=== PATIENT | male | born 1975 | race Two or more races ===

== ENCOUNTER 2017-07-04 06:51 | Emergency (ER) | payer MEDICAID ==
[~2017-07-04] VITALS: Ht 175.3 cm; Wt 113.4 kg
[~2017-07-04 06:51] MED LIST: NAPR-223 PO; TRAM-297 PO
[2017-07-04 07:40] LABS: Basophils # (auto) 0.1 uL; Basophils % (auto) 0.9 % (0.0-2.0); Eosinophils # (auto) 0.3 uL; Eosinophils % (auto) 2.7 % (0.0-7.0); Hemoglobin 15.5 g/dL (13.5-17.5); Lymphocytes # (auto) 2.5 uL; Lymphocytes % (auto) 21.9 % (10.0-50.0); Mean Corpuscular Hemoglobin 29.7 pg (28.0-32.0); Mean Corpuscular Hgb Conc. 34.4 g/dL (32.0-36.0); Mean Corpuscular Volume 86.5 fL (80.0-100.0); Monocytes # (auto) 0.5 uL; Monocytes % (auto) 4.3 % (0.0-12.0); Neutrophils # (auto) 8.1 uL; Neutrophils % (auto) 70.2 % (37.0-80.0); Platelet Count (auto) 337 10^3/uL (140-450); Red Cell Distribution Width 14.5 % (11.8-14.3); White Blood Cell 11.5 10^3/uL (4.4-10.8)
[2017-07-04 07:55] LABS: Alanine Aminotransferase 36 U/L (16-61); Albumin 3.9 g/dL (3.4-5.0); Amylase 40 U/L (25-115); Anion Gap 12 (5-15); Aspartate Aminotransferase 26 U/L (15-37); BUN/Creatinine Ratio 15.8; Blood Urea Nitrogen 15 mg/dL (7-18); Carbon Dioxide 21 mmol/L (21-32); Chloride 107 mmol/L (98-107); GFR African American 111 mL/min; GFR Non-African American 92 mL/min; Glucose 206 mg/dL (74-106); INR 0.97 (0.9-1.15); Lipase 96 U/L (73-393); Magnesium 2.3 mg/dL (1.6-2.6); Partial Thromboplastin Time 26.1 sec (22.64-33.71); Potassium 3.3 mmol/L (3.5-5.1); Prothrombin Time 10.6 sec (9.37-12.3); Sodium 140 mmol/L (136-145)
[2017-07-04 08:06] LABS: Alkaline Phosphatase 115 U/L (45-117); Bilirubin, Total 0.4 mg/dL (0.2-1.0); Total Protein 8.3 g/dL (6.4-8.2)
[2017-07-04] MEDS ORDERED: SODIUM CHLORIDE 0.9% 1,000 ML IV ONE ×2 (08:13)
[2017-07-04] MEDS ORDERED: POTASSIUM CHL 10% (20 MEQ/15ML) 15ml ORAL SOLN PO ONE (08:15)
[2017-07-04] MEDS ORDERED: DIAZEPAM 5 MG/ML 2ML SYRG IV ONE (08:15)
[2017-07-04] MEDS ORDERED: LORazepam 2MG/ML-1ML VIAL IV ONE (08:30)
[2017-07-04 10:20] LABS: Urine Bacteria FEW /hpf (None Seen); Urine Blood TRACE /uL (Negative); Urine Mucus MODERATE (None Seen); Urine Specific Gravity 1.026 (1.001-1.035); Urine WBC 5 /hpf (0 - 3)
[2017-07-04 11:46] VITALS: BP 132/96
== END 2017-07-04 12:53 | disposition home or self-care (01) ==
LOC: ER 06:51 → EDBD 06:51 → ER 12:53
DX: R42 Dizziness and giddiness (principal); J40 Bronchitis, not specified as acute or chronic; F12.10 Cannabis abuse, uncomplicated; E87.6 Hypokalemia; F17.210 Nicotine dependence, cigarettes, uncomplicated; Z79.1 Long term (current) use of non-steroidal anti-inflammatories (NSAID); Z79.891 Long term (current) use of opiate analgesic
CPT/HCPCS: 36415; 71045; 80053; 81001; 82150; 83690; 83735; 83880; 84484; 85025; 85610; 85730; 93005; 96374; 99285; J2060

== ENCOUNTER 2024-05-09 08:15 | Inpatient (IN) | payer MEDICAID ==
[~2024-05-09] VITALS: Ht 175.3 cm; Wt 116.0 kg
--- NOTE | 2024-05-09 09:32 | DVH ---
CHEST RADIOGRAPH Indication: cough Technique: Single frontal view of the chest was obtained COMPARISON: None FINDINGS: Lines and Tubes: None Lungs: Clear Pleura: No effusion. No pneumothorax. Cardiomediastinal contours: Unremarkable Bones: Unremarkable IMPRESSION: No acute disease.
[2024-05-09 09:36] LABS: Basophils # (auto) 0.1 10 ^3/uL (0-0.2); Basophils % (auto) 1.4 % (0.0-2.0); Eosinophils # (auto) 0.3 10 ^3/uL (0-0.8); Eosinophils % (auto) 4.2 % (0.0-7.0); Hematocrit 41.8 % (41.0-53.0); Hemoglobin 13.4 g/dL (13.5-17.5); Lymphocytes # (auto) 1.7 10 ^3/uL (0.4-5.4); Lymphocytes % (auto) 23.6 % (10.0-50.0); Mean Corpuscular Hemoglobin 28.1 pg (28.0-32.0); Mean Corpuscular Hgb Conc. 32.1 g/dL (32.0-36.0); Mean Corpuscular Volume 87.5 fL (80.0-100.0); Monocytes # (auto) 0.5 10 ^3/uL (0-1.3); Monocytes % (auto) 7.3 % (0.0-12.0); Neutrophils # (auto) 4.7 10 ^3/uL (1.6-8.6); Neutrophils % (auto) 63.5 % (37.0-80.0); Nucleated Red Blood Cells % 0.2 %; Platelet Count (auto) 334 10^3/uL (140-450); Red Blood Cells 4.78 10^6/uL (4.5-5.90); Red Cell Distribution Width 14.8 % (11.8-14.3); White Blood Cell 7.4 10^3/uL (4.4-10.8)
--- NOTE | 2024-05-09 09:40 | ED.PDOC ---
SOB-HPI HPI Comments 49-year-old male brought in by EMS presents with a chief complaint of SOB at rest and with exertion and cough x 2 weeks. Patient mentions that he has been feeling increasingly SOB for the past x 2 weeks both when he is walking and at rest sitting down. Patient mentions that he also has been coughing when taking deep breaths and reports green sputum production. Patient is not on home oxygen and does not endorse COPD or CHF. No other symptoms or modifying factors present at this time. Chief Complaint: Shortness of Breath Time Seen by MD: 09:00 Primary Care Provider: RICARDO Garcia notes: Medications, Allergies Information Source: Patient Mode of Arrival: EMS Severity: Moderate Timing: Days Duration: Since onset Context: At Rest, With Light Exertion PE Risk Factors: None History of: None Prehospital treatment: None Associated Signs and Symptoms: Cough If cough with SOB: Productive, Green Past Medical History PAST MEDICAL HISTORY: DM Surgical History: Denies all surgeries Family History Family History: Unknown Social History Smoker: Cigarettes, Less Than 1 Pack/Day Alcohol: Occasionally Drugs: Marijuana Lives In: Home Constitutional: denies: chills, diaphoresis, fatigue, fever, malaise, sweats, weakness, others EENTM: denies: blurred vision, double vision, ear bleeding, ear discharge, ear drainage, ear pain, ear ringing, eye pain, eye redness, hearing loss, mouth pain, mouth swelling, nasal discharge, nose bleeding, nose congestion, nose pain, photophobia, tearing, throat pain, throat swelling, voice changes, others Respiratory: reports: cough, SOB at rest, shortness of breath, SOB with excertion; denies: hemoptysis, orthopnea, stridor, wheezing, others Cardiovascular: denies: chest pain, dizzy spells, diaphoresis, Dyspnea on exertion, edema, irregular heart beat, left arm pain, lightheadedness, palpitations, PND, syncope, others Gastrointestinal: denies: abdomen distended, abdominal pain, blood streaked bowels, constipated, diarrhea, dysphagia, difficulty swallowing, hematemesis, melena, nausea, poor appetite, poor fluid intake, rectal bleeding, rectal pain, vomiting, others Genitourinary: denies: burning, dysuria, flank pain, frequency, hematuria, incontinence, penile discharge, penile sore, pain, testicle pain, testicle swelling, urgency, others Neurological: denies: dizziness, fainting, headache, left sided numbness, left sided weakness, numbness, paresthesia, pre-existing deficit, right sided numbness, right sided weakness, seizure, speech problems, tingling, tremors, weakness, others Musculoskeletal: denies: back pain, gout, joint pain, joint swelling, muscle pain, muscle stiffness, neck pain, others Integumetry: denies: bruises, change in color, change in hair/nails, dryness, laceration, lesions, lumps, rash, wounds, others Allergic/Immunocompromised: denies: Difficulty Healing, Frequent Infections, Hives, Itching, others Hematologic/Lymphatic: denies: anemia, blood clots, easy bleeding, easy bruising, swollen glands, others Endocrine: denies: excessive hunger, excessive sweating, excessive thirst, excessive urination, flushing, intolerance to cold, intolerance to heat, unexplained weight gain, unexplained weight loss, others Psychiatric: denies: anxiety, bipolar disorder, depression, hopeless, panic disorder, schizophrenia, sleepless, suicidal, others All Other Systems: Reviewed and Negative Physical Exam General Appearance: Moderate Distress, Normal HEENT: Normal ENT Inspection, Pharynx Normal, TMs Normal Neck: Full Range of Motion, Non-Tender, Normal, Normal Inspection Respiratory: Chest Non-Tender, No Accessory Muscle Use, No Respiratory Distress, Other (Coarse breath sounds) Cardiovascular: No Edema, No JVD, No Murmur, No Gallop, Normal Peripheral Pulses, Regular Rate/Rhythm Breast Exam: Deferred Gastrointestinal: No Organomegaly, Non Tender, No Pulsatile Mass, Normal Bowel Sounds, Soft Genitalia: Deferred Pelvic: Deferred Rectal: Deferred Extremities: No calf tenderness, Normal capillary refill, Normal inspection, Normal range of motion, Non-tender, No pedal edema Musculoskeletal : Apperance: Normal Neurologic: Alert, seasonal recruiter II-XII nml as Tested, No Motor Deficits, Normal Affect, Normal Mood, No Sensory Deficits Cerebellar Function: Normal Reflexes: Normal Skin: Dry, Normal Color, Warm Peripheral Pulses: 3+ Radial (R), 3+ Radial (L) Lymphatic: No Adenopathy Was a procedure done? Was a procedure done?: No Differential Dx Differential Diagnosis: Anxiety, Asthma, Bronchitis, CHF, COPD X-Ray, Labs, Meds, VS Vital Signs Date Time Temp Pulse Resp B/P (MAP) Pulse Ox O2 Delivery O2 Flow Rate FiO2 05/09/24 08:25 104 05/09/24 08:19 99.0 107 20 154/87 (109) 97 Lab Test 05/09/24 08:18 Range/Units White Blood Count 7.4 4.4-10.8 10^3/uL Red Blood Count 4.78 4.5-5.90 10^6/uL Hemoglobin 13.4 L 13.5-17.5 g/dL Hematocrit 41.8 41.0-53.0 % Mean Corpuscular Volume 87.5 80.0-100.0 fL Mean Corpuscular Hemoglobin 28.1 28.0-32.0 pg Mean Corpuscular Hemoglobin Concent 32.1 32.0-36.0 g/dL Red Cell Distribution Width 14.8 H 11.8-14.3 % Platelet Count 334 140-450 10^3/uL Mean Platelet Volume 9.2 6.9-10.8 fL Neutrophils (%) (Auto) 63.5 37.0-80.0 % Lymphocytes (%) (Auto) 23.6 10.0-50.0 % Monocytes (%) (Auto) 7.3 0.0-12.0 % Eosinophils (%) (Auto) 4.2 0.0-7.0 % Basophils (%) (Auto) 1.4 0.0-2.0 % Neutrophils # (Auto) 4.7 1.6-8.6 10 ^3/uL Lymphocytes # (Auto) 1.7 0.4-5.4 10 ^3/uL Monocytes # (Auto) 0.5 0-1.3 10 ^3/uL Eosinophils # (Auto) 0.3 0-0.8 10 ^3/uL Basophils # (Auto) 0.1 0-0.2 10 ^3/uL Nucleated Red Blood Cells 0.2 % Sodium Level 138 136-145 mmol/L Potassium Level 3.5 3.5-5.1 mmol/L Chloride Level 101 98-107 mmol/L Carbon Dioxide Level 26 20-31 mmol/L Anion Gap 11 5-15 Blood Urea Nitrogen 9 9-23 mg/dL Creatinine 0.96 0.700-1.30 mg/dL Glomerular Filtration Rate Calc 96 >90 mL/min BUN/Creatinine Ratio 9.4 L 10.0-20.0 Serum Glucose 387 H 74-106 mg/dL Calcium Level 9.8 8.7-10.4 mg/dL Troponin I High Sensitivity 74 *H </=54 ng/L Patient alert. Complaining of cough. Blood sugar elevated. Vitals stable. Cardiac marker elevated. Has risk factors for coronary artery disease. Coarse breath sounds. Possible pneumonitis. EKG reviewed does not show any acute changes. Was given Lovenox. Establish intravenous access. Was given fluids. Was given insulin. Explained to the patient. Continue cardiac monitoring. Time of 1ST Reevaluation: 09:30 Reevaluation 1ST: Unchanged Patient Education/Counseling: Diagnosis, Treatment, Prognosis Family Education/Counseling: Diagnosis, Treatment, Prognosis Departure 1 Departure Time of Disposition: 11:47 Impression: Primary Impression: Demand ischemia Additional Impression: Uncontrolled diabetes mellitus Qualified Codes: E13.65 - Other specified diabetes mellitus with hyperglycemia Disposition: ADMITTED INPATIENT Admit to: Med Surg Condition: Guarded Critical Care Note Critical Care Time?: Yes (45 min-critical care time only) Critical care comment: Elevated troponin elevated blood sugar Stability Stability form required: No Heart Score Heart Score: Heart Score Response (Comments) Value History Slightly Suspicious 0 EKG Normal 0 Age 45-64 1 Risk Factors 1 or 2 risk factors 1 Troponin 1-2 x's Normal limit 1 Total 3 I personally scribed for CULLEN JOHN MD ([email or web address]) on 05/09/24 at 09:40. Electronically submitted by Allan Sharma ([email or web address]). CULLEN JOHN MD May 09, 2024 09:40
[2024-05-09 09:47] LABS: Chloride 101 mmol/L (98-107); Sodium 138 mmol/L (136-145)
[2024-05-09 09:48] LABS: Anion Gap 11 (5-15); Carbon Dioxide 26 mmol/L (20-31)
[2024-05-09 09:49] LABS: Calcium 9.8 mg/dL (8.7-10.4)
[2024-05-09 09:53] LABS: BUN/Creatinine Ratio 9.4 (10.0-20.0); Blood Urea Nitrogen 9 mg/dL (9-23)
[2024-05-09 10:09] LABS: Glucose 387 mg/dL (74-106); Potassium 3.5 mmol/L (3.5-5.1)
[2024-05-09] MEDS: ENOXAPARIN SOD 100 MG/1 ML SYRINGE SC ONE (12:17)
--- NOTE | 2024-05-09 12:42 | DVHHP2 ---
History of Present Illness Reason for Visit: Shortness of breath History of Present Illness Tulio Null, is a 49-year-old male who denies any past medical history who comes in with complaints of shortness of breath. Patient states his shortness of breath began about 2 weeks ago. It has progressed to be with exertion and at re st. Patient went to urgent care yesterday and received antibiotics, but came to ER today because he felt like he was gasping for air while sleeping last night. Past Surgical History: Hernia Repair Smoke: <1 pack per day ALCOHOL: none Drugs: Marijuana Lives: with Family Domestic Violence: Neg Review of Systems Constitutional: No: Fever, Chills, Sweats, Weakness, Malaise, Other Eyes: No: Pain, Vision change, Conjunctivae inflammation, Eyelid inflammation, Other, Redness ENT: No: Ear pain, Ear discharge, Nose pain, Nose discharge, Nose congestion, Mouth pain, Mouth swelling, Throat pain, Throat swelling, Other Respiratory: Cough, Shortness of breath, SOB with excertion, Wheezing; No: Dry, Hemoptysis, Pleuritic Pain, Sputum, Wheezing, Other Cardiovascular: No: Chest Pain, Palpitations, Orthopnea, Paroxysmal Noc. Dyspnea, Edema, Lt Headedness, Other Gastrointestinal: No: Nausea, Vomiting, Abdominal Pain, Diarrhea, Constipation, Melena, Hematochezia, Other Genitourinary: No Dysuria, No Frequency, No Incontinence, No Hematuria, No Retention, No Other Musculoskeletal: No: other, neck pain, shoulder pain, arm pain, back pain, hand pain, leg pain, foot pain Skin: No: Rash, Lesions, Jaundice, Bruising, Other Neurological: No: Weakness, Numbness, Incoordination, Change in speech, Confusion, Seizures, Other Allergies: Coded Allergies: NO KNOWN ALLERGIES (Unverified , 01/14/13) Exam Vital Signs Vital Signs Date Time Temp Pulse Resp B/P (MAP) Pulse Ox O2 Delivery O2 Flow Rate FiO2 05/09/24 12:26 103 20 96 Room Air 05/09/24 12:26 98.9 155/95 (115) 98.9 General Appearance: Alert, Oriented X3, Cooperative, moderate distress HEENT: Atraumatic, PERRLA Respiratory: Other (bilateral wheezing and dimished breath sounds. ) Cardiovascular: Normal S1, Normal S2, Other (Tachycardia) Abdominal: Normal bowel sounds, Soft, No tenderness, No hepatospenomegaly Extremities: No clubbing, No cyanosis, No edema, Normal pulses, No tenderness/swelling Skin: No rashes, No breakdown, No significant lesion Neuro: Normal gait, Normal speech, Strength at 5/5 X4 ext Psych/Mental Status: Mental status NL, Mood NL Labs/Xrays Labs Test 05/09/24 08:18 Range/Units White Blood Count 7.4 4.4-10.8 10^3/uL Red Blood Count 4.78 4.5-5.90 10^6/uL Hemoglobin 13.4 L 13.5-17.5 g/dL Hematocrit 41.8 41.0-53.0 % Mean Corpuscular Volume 87.5 80.0-100.0 fL Mean Corpuscular Hemoglobin 28.1 28.0-32.0 pg Mean Corpuscular Hemoglobin Concent 32.1 32.0-36.0 g/dL Red Cell Distribution Width 14.8 H 11.8-14.3 % Platelet Count 334 140-450 10^3/uL Mean Platelet Volume 9.2 6.9-10.8 fL Neutrophils (%) (Auto) 63.5 37.0-80.0 % Lymphocytes (%) (Auto) 23.6 10.0-50.0 % Monocytes (%) (Auto) 7.3 0.0-12.0 % Eosinophils (%) (Auto) 4.2 0.0-7.0 % Basophils (%) (Auto) 1.4 0.0-2.0 % Neutrophils # (Auto) 4.7 1.6-8.6 10 ^3/uL Lymphocytes # (Auto) 1.7 0.4-5.4 10 ^3/uL Monocytes # (Auto) 0.5 0-1.3 10 ^3/uL Eosinophils # (Auto) 0.3 0-0.8 10 ^3/uL Basophils # (Auto) 0.1 0-0.2 10 ^3/uL Nucleated Red Blood Cells 0.2 % Sodium Level 138 136-145 mmol/L Potassium Level 3.5 3.5-5.1 mmol/L Chloride Level 101 98-107 mmol/L Carbon Dioxide Level 26 20-31 mmol/L Anion Gap 11 5-15 Blood Urea Nitrogen 9 9-23 mg/dL Creatinine 0.96 0.700-1.30 mg/dL Glomerular Filtration Rate Calc 96 >90 mL/min BUN/Creatinine Ratio 9.4 L 10.0-20.0 Serum Glucose 387 H 74-106 mg/dL Calcium Level 9.8 8.7-10.4 mg/dL Troponin I High Sensitivity 74 *H </=54 ng/L CHEST RADIOGRAPH FINDINGS: Lines and Tubes: None Lungs: Clear Pleura: No effusion. No pneumothorax. Cardiomediastinal contours: Unremarkable Bones: Unremarkable IMPRESSION: No acute disease. Assessment/Plan Assessment/Plan Assessment: Acute respiratory disease, Uncontrolled diabetes, Elevated troponin, Hypertension, Plan: Admit to Tele, Breathing treatments, COVID swab, Influenza A&B swab, Repeat troponin, A1c, IV steroids, IV antibiotics, Accu checks Q AC&HS with sliding scale, Plan discussed with: Patient My Orders Orders - LALITO MARINELLI Procedure Category Date Status Time Admit ADMIT 05/09/24 Transmitted 12:35 Code Status CODE 05/09/24 Transmitted 12:35 2 Gm Sodium Diet DIET 05/09/24 Transmitted Lunch Sodium Chloride Lock PHA 05/09/24 Transmitted (Saline Lock Ns) 14:00 Hydrocodone-Acet PHA 05/09/24 Transmitted 5/325mg Tab ([place] 12:45 Ondansetron Hcl PHA 05/09/24 Transmitted (Zofran) 12:45 Docusate Sodium PHA 05/09/24 Transmitted Capsule (Colace 12:45 Complete Blood Count LAB 05/10/24 Verified 04:00 Comprehensive LAB 05/10/24 Verified Metabolic Panel 04:00 Condition: Critical [facility] 05/09/24 Transmitted 12:35 Acetaminophen Tablet [facility] 05/09/24 Transmitted (Tylenol Tablet) 12:45 Nitroglycerin PHA 05/09/24 Transmitted Sublingual (Ntrostat 12:45 Morphine Sulfate PHA 05/09/24 Transmitted Injection 12:45 Stat Ekg For Chest [facility] 05/09/24 Transmitted Pain 12:35 Notify Md Of Changes [facility] 05/09/24 Transmitted From Base 12:35 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 Manager For [facility] 05/09/24 Transmitted 24 Hours 12:35 Emergency Dysrhythmia [facility] 05/09/24 Transmitted Protocol 12:35 Rhythm Strips Once [facility] 05/09/24 Transmitted Every Shift 12:35 Oxygen By Nasal RT 05/09/24 Transmitted Cannula 12:35 Glucose Blood PHA 05/09/24 Transmitted (Accu-Chek Comfort 17:00 Bedtime Insulin Scale PHA 05/09/24 Transmitted 22:00 Moderate Insulin Ss PHA 05/09/24 Transmitted 17:00 Dextrose 50% Syringe PHA 05/09/24 Transmitted 12:45 Troponin-I Hs LAB 05/09/24 Transmitted 12:35 Troponin-I Hs LAB 05/09/24 Transmitted 13:35 Covid19 Antigen Jazmine LAB 05/09/24 Transmitted Rapid Influenza A&B LAB 05/09/24 Transmitted 12:35 Ipratropium Medneb PHA 05/09/24 Transmitted (Atrovent Medneb) 18:00 Albuterol Medneb PHA 05/09/24 Transmitted (Ventolin Medneb) 18:00 Methylprednisolone PHA 05/09/24 Transmitted Sod Succ (Solu Medrol 22:00 Date of Service: May 09, 2024 Billing Provider: LALITO MARINELLI Common Visit Codes: [id number] INP/OBS CARE (HIGH) LALITO MARINELLI May 09, 2024 12:42
[2024-05-09] MEDS ORDERED: ACETAMINOPHEN 325 MG TAB PO PRN (12:45)
[2024-05-09] MEDS ORDERED: NITROGLYCERIN 0.4 MG SL TAB SL PRN (12:45)
[2024-05-09] MEDS ORDERED: MORPHINE SULFATE INJ 2 MG/ml SYRG IV PRN (12:45)
[2024-05-09] MEDS ORDERED: DOCUSATE SOD 100 MG CAP PO PRN (12:45)
[2024-05-09] MEDS ORDERED: HYDROcodone-ACET 5/325MG TAB PO PRN (12:45)
[2024-05-09] MEDS ORDERED: ONDANSETRON HCL 4 MG/2 ML VIAL IV PRN (12:45)
[2024-05-09] MEDS ORDERED: DEXTROSE (50%) 50ML SYRG IV PRN (12:45)
[2024-05-09 12:51] VITALS: BP 155/95; PULSE 103; RESP 20; TEMP 98.9; O2SAT 96
[2024-05-09] MEDS: SODIUM CHLOR 0.9% PF (SALINE LOCK) 10ML VIAL/SYR IV SCH (14:22)
[2024-05-09 15:00] VITALS: PULSE 104; RESP 18; O2SAT 96
[2024-05-09] MEDS: cefTRIAXone 1GM/50ML D5W 50 ML IV ONE (16:07)
[2024-05-09] MEDS: AZITHROMYCIN 500MG/ 250ML 250 ML IV ONE (16:17)
[2024-05-09] MEDS: LISINOPRIL 5 MG TAB PO ONE (16:17)
[2024-05-09 17:33] LABS: Rapid Influenza A Negative (Negative); Rapid Influenza B Negative (Negative)
[2024-05-09 17:34] LABS: COVID19 ANTIGEN SOFIA FIA NEGATIVE (NEGATIVE)
[2024-05-09 17:48] VITALS: PULSE 107; RESP 20; O2SAT 97
[2024-05-09] MEDS: IPRATROPIUM BROM 0.5 MG/2.5ML INH SOL NEB SCH (17:48)
[2024-05-09] MEDS: ALBUTEROL SULF 2.5 MG/0.5ML(0.5%) NEB SOLN NEB SCH (17:48)
[2024-05-09] MEDS: LORazepam 2MG/ML-1ML VIAL IV ONE (18:15)
[2024-05-09] MEDS: InsuLIN REG 1unit/0.01ml Soln (100units/ml) SC SCH ×2 (18:27→21:54)
[2024-05-09] MEDS: ACCU-CHEK COMFORT CURVE STRIP VI SCH (18:28)
--- NOTE | 2024-05-09 19:06 | ECG ---
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
[2024-05-09] MEDS: TEMAZEPAM 15 MG CAP PO ONE (21:09)
[2024-05-09 21:27] LABS: Urine Bacteria None Seen /hpf (None Seen)
[2024-05-09 21:39] LABS: Urine Blood 2+ /uL (Negative); Urine Clarity Clear (Clear); Urine Color Light-Yellow (Yellow); Urine Protein, UAD TRACE (Negative); Urine Specific Gravity 1.019 (1.001-1.035); Urine Squamous Epithelial Cell None Seen /hpf (<5); Urine Urobilinogen Normal (Negative); Urine WBC 2 /HPF (0-3)
[2024-05-09] MEDS: methylPREDNISolone SOD SUCC 40 MG/ML VL IV SCH (21:53)
[2024-05-09 22:30] VITALS: BP 137/79; PULSE 102; PULSE 98; RESP 20; RESP 22; TEMP 98.9; O2SAT 96; O2SAT 98
[2024-05-09 23:03] VITALS: PULSE 104; O2SAT 97
[2024-05-09] MEDS ORDERED: ALBUAER3 IN (23:30)
[2024-05-09] MEDS ORDERED: AZIT-185 PO (23:32)
[2024-05-09] MEDS ORDERED: BENZ200C64 PO (23:32)
[2024-05-10 00:21] VITALS: BP 121/79; PULSE 98; RESP 20; TEMP 97.7; O2SAT 98
[2024-05-10] MEDS ORDERED: FLUMAZENIL 0.1 MG/ML INJ 10ML MDV IV ONE (01:35)
[2024-05-10 01:42] LABS: Base Excess -2.7 mmol/L (-2.0-3.0)
[2024-05-10] MEDS: FLUMAZENIL 0.1 MG/ML INJ 10ML MDV IV ONE (01:47)
[2024-05-10] MEDS ORDERED: cefTRIAXone 1GM/50ML D5W 50 ML IV SCH (09:00)
[2024-05-10] MEDS ORDERED: AZITHROMYCIN 500MG/ 250ML 250 ML IV SCH (10:00)
[2024-05-10] MEDS ORDERED: LISINOPRIL 5 MG TAB PO SCH (10:00)
== END 2024-05-10 03:00 | disposition left against medical advice (07) | DRG 133 ==
LOC: EDBD 08:15 → ER 08:15 → OVERFLOW 12:35 → TELE-WESTW 22:19
PROVIDERS: ADMIT Nurse Practitioner Family; ATTEND Nurse Practitioner Family
PROC: 5A09357 Assistance with Respiratory Ventilation, Less than 24 Consecutive Hours, Continuous Positive Airway Pressure (ICD-10-PCS; principal; 2024-05-09)
DX: J96.00 Acute respiratory failure, unspecified whether with hypoxia or hypercapnia (principal); E11.9 Type 2 diabetes mellitus without complications; Z53.29 Procedure and treatment not carried out because of patient's decision for other reasons; I10 Essential (primary) hypertension; F17.210 Nicotine dependence, cigarettes, uncomplicated; Z79.899 Other long term (current) drug therapy; Z79.4 Long term (current) use of insulin
CPT/HCPCS: 36415; 36600; 71045; 80048; 81001; 82805; 82962; 83036; 84484; 85025; 87426; 87804; 93005; 94660; 99291; G0378; J1815

== ENCOUNTER 2024-05-29 10:11 | Inpatient (IN) | payer MEDICAID ==
[~2024-05-29] VITALS: Ht 175.3 cm; Wt 107.2 kg
[2024-05-29] MEDS: ASPirin 81 mg TAB ONE (09:56)
[~2024-05-29 10:11] MED LIST changes: +ALBUAER3 IN; +AZIT-185 PO; +BENZ200C64 PO; -NAPR-223 PO; -TRAM-297 PO
--- NOTE | 2024-05-29 10:35 | ED.PDOC ---
SOB-HPI HPI Comments 49 year old male presents to the ED with chief complaint of SOB. Patient reports that he has been experiencing SOB with associated 8/10 substernal chest heaviness and cough since this morning. Patient relays that he was recently discharged from a one night admission to [facility] for CHF exacerbation, being prescribed numerous medications including Lasix. Patient denies any N/V, fever, chills, leg swelling, headache, or dizziness. Chief Complaint: Shortness of Breath Time Seen by MD: 10:27 Primary Care Provider: RICARDO Garcia notes: Nurses Notes, Medications, Allergies Information Source: Patient Mode of Arrival: Ambulatory Severity: Moderate Timing: Hours Duration: Since onset Context: At Rest PE Risk Factors: None History of: CHF Prehospital treatment: None Modifying Factors: Nothing Associated Signs and Symptoms: Cough, Chest Pain Quality: Heavy Radiation: No Radiation Location: Substernal If cough with SOB: Non-Productive Past Medical History PAST MEDICAL HISTORY: CHF, DM, High Lipids Surgical History: Hernia Repair Family History Family History: Reviewed,noncontributory to illness, Unknown Social History Smoker: Quit Less Than 1 Year, Cigarettes, Less Than 1 Pack/Day Alcohol: Occasionally Drugs: Marijuana Lives In: Home Constitutional: denies: chills, diaphoresis, fatigue, fever, malaise, sweats, weakness, others EENTM: denies: blurred vision, double vision, ear bleeding, ear discharge, ear drainage, ear pain, ear ringing, eye pain, eye redness, hearing loss, mouth pain, mouth swelling, nasal discharge, nose bleeding, nose congestion, nose pain, photophobia, tearing, throat pain, throat swelling, voice changes, others Respiratory: reports: cough, shortness of breath; denies: hemoptysis, orthopnea, SOB at rest, SOB with excertion, stridor, wheezing, others Cardiovascular: reports: chest pain; denies: dizzy spells, diaphoresis, Dyspnea on exertion, edema, irregular heart beat, left arm pain, lightheadedness, palpitations, PND, syncope, others Gastrointestinal: denies: abdomen distended, abdominal pain, blood streaked bowels, constipated, diarrhea, dysphagia, difficulty swallowing, hematemesis, melena, nausea, poor appetite, poor fluid intake, rectal bleeding, rectal pain, vomiting, others Genitourinary: denies: burning, dysuria, flank pain, frequency, hematuria, incontinence, penile discharge, penile sore, pain, testicle pain, testicle swelling, urgency, others Neurological: denies: dizziness, fainting, headache, left sided numbness, left sided weakness, numbness, paresthesia, pre-existing deficit, right sided numbness, right sided weakness, seizure, speech problems, tingling, tremors, weakness, others Musculoskeletal: denies: back pain, gout, joint pain, joint swelling, muscle pain, muscle stiffness, neck pain, others Integumetry: denies: bruises, change in color, change in hair/nails, dryness, laceration, lesions, lumps, rash, wounds, others Allergic/Immunocompromised: denies: Difficulty Healing, Frequent Infections, Hives, Itching, others Hematologic/Lymphatic: denies: anemia, blood clots, easy bleeding, easy bruising, swollen glands, others Endocrine: denies: excessive hunger, excessive sweating, excessive thirst, excessive urination, flushing, intolerance to cold, intolerance to heat, unexplained weight gain, unexplained weight loss, others Psychiatric: denies: anxiety, bipolar disorder, depression, hopeless, panic disorder, schizophrenia, sleepless, suicidal, others All Other Systems: Reviewed and Negative Physical Exam General Appearance: Moderate Distress, Obese HEENT: Normal ENT Inspection, Pharynx Normal, TMs Normal Neck: Full Range of Motion, Non-Tender, Normal, Normal Inspection Respiratory: Chest Non-Tender, No Accessory Muscle Use, Rales, Respiratory Distress Cardiovascular: No Edema, No JVD, No Murmur, No Gallop, Normal Peripheral Pulses, Regular Rate/Rhythm Breast Exam: Deferred Gastrointestinal: No Organomegaly, Non Tender, No Pulsatile Mass, Normal Bowel Sounds, Soft Genitalia: Deferred Pelvic: Deferred Rectal: Deferred Extremities: No calf tenderness, Normal capillary refill, Pedal edema Musculoskeletal : Apperance: Normal Neurologic: Alert, seismic survey assistant II-XII nml as Tested, No Motor Deficits, Normal Affect, Normal Mood, No Sensory Deficits Cerebellar Function: Normal Reflexes: Normal Skin: Dry, Normal Color, Warm Lymphatic: No Adenopathy EKG EKG : Pulse Rate (adult): 96 [place]: Normal Cardiac Rhythm: NSR Block: LBBB Hypertrophy: None ST: Normal Was a procedure done? Was a procedure done?: No Differential Dx Differential Diagnosis: Asthma, Bronchitis, CHF, COPD, Pneumonia X-Ray, Labs, Meds, VS Vital Signs Date Time Temp Pulse Resp B/P (MAP) Pulse Ox O2 Delivery O2 Flow Rate FiO2 05/29/24 12:11 155/110 05/29/24 12:11 101 20 155/110 (125) 96 05/29/24 11:33 98 05/29/24 10:51 97 18 97 Room Air* 0 21 05/29/24 10:51 97.7 97 18 145/106 (119) 97 97.7 05/29/24 10:35 96 05/29/24 10:30 96 05/29/24 10:25 22 97 Room Air* 0 21 05/29/24 10:19 97.6 97 22 139/101 (114) 97 Lab Test 05/29/24 11:39 05/29/24 10:35 05/29/24 10:30 Range/Units Troponin I High Sensitivity Pending 122 *H </=54 ng/L White Blood Count 8.9 4.4-10.8 10^3/uL Red Blood Count 4.90 4.5-5.90 10^6/uL Hemoglobin 13.9 13.5-17.5 g/dL Hematocrit 42.3 41.0-53.0 % Mean Corpuscular Volume 86.2 80.0-100.0 fL Mean Corpuscular Hemoglobin 28.3 28.0-32.0 pg Mean Corpuscular Hemoglobin Concent 32.8 32.0-36.0 g/dL Red Cell Distribution Width 15.3 H 11.8-14.3 % Platelet Count 252 140-450 10^3/uL Mean Platelet Volume 9.1 6.9-10.8 fL Neutrophils (%) (Auto) 69.7 37.0-80.0 % Lymphocytes (%) (Auto) 18.6 10.0-50.0 % Monocytes (%) (Auto) 6.6 0.0-12.0 % Eosinophils (%) (Auto) 4.4 0.0-7.0 % Basophils (%) (Auto) 0.7 0.0-2.0 % Neutrophils # (Auto) 6.2 1.6-8.6 10 ^3/uL Lymphocytes # (Auto) 1.7 0.4-5.4 10 ^3/uL Monocytes # (Auto) 0.6 0-1.3 10 ^3/uL Eosinophils # (Auto) 0.4 0-0.8 10 ^3/uL Basophils # (Auto) 0.1 0-0.2 10 ^3/uL Nucleated Red Blood Cells 0.0 % Sodium Level 141 136-145 mmol/L Potassium Level 3.8 3.5-5.1 mmol/L Chloride Level 106 98-107 mmol/L Carbon Dioxide Level 26 20-31 mmol/L Anion Gap 9 5-15 Blood Urea Nitrogen 9 9-23 mg/dL Creatinine 1.04 0.700-1.30 mg/dL Glomerular Filtration Rate Calc 87 >90 mL/min BUN/Creatinine Ratio 8.7 L 10.0-20.0 Serum Glucose 236 H 74-106 mg/dL Calcium Level 9.3 8.7-10.4 mg/dL B-Type Natriuretic Peptide 806.99 0-100 pg/mL Urine Color Light-yellow Yellow Urine Clarity Clear Clear Urine pH 6.5 5.0-9.0 Urine Specific [place] 1.017 1.001-1.035 Urine Protein 1+ H Negative Urine Ketones Negative Negative Urine Blood Negative Negative /uL Urine Nitrite Negative Negative Urine Bilirubin Negative Negative Urine Urobilinogen 2 H Negative mg/dL Urine Leukocyte Esterase Negative Negative /uL Urine RBC <1 0 - 3 /hpf Urine Microscopic WBC 1 0-3 /HPF Urine Squamous Epithelial Cells Few <5 /hpf Urine Bacteria None seen None Seen /hpf Urine Glucose 2+ H Normal mg/dL Current Medications Medications (Trade) Dose Ordered Sig/Av Route Start Time Stop Time Status Last Admin Aspirin 162 mg ONCE ONCE PO 05/29/24 10:30 05/29/24 10:31 DC 05/29/24 10:54 Furosemide (Lasix Injection) 40 mg ONCE ONCE IV 05/29/24 11:15 05/29/24 11:16 DC 05/29/24 12:11 Chest XR indicates: Possible mild pulmonary vascular congestion or viral pneumonia.Subtle patchy opacity IV Hep-Lock was established The patient was given Lasix 40 mg IV push The patient was also given aspirin 162 mg by mouth because of the chest pain The 1st troponin came back elevated at 122. At that time we did review the 2nd EKG which shows no ST changes but we are going to consult with the television servicer. We consulted with Dr. Eastman and he did come down and evaluate the patient. The patient's BNP is 806.99 which is consistent with a pulmonary vascular congestion. The patient's CBC is within normal limits The chemistry panel is within normal limits We have discussed the findings with the patient and the television servicer will be doing further evaluation on this patient At this time, the patient will be admitted to the hospitalist Care time was involved with consulting the television servicer as well as bedside management. Critical Care also involved interpretation of labs and imaging studies as well as decision making The patient was admitted at this time Images Reviewed?: Images reviewed and evaluated by me Time of 1ST Reevaluation: 12:18 Reevaluation 1ST: Unchanged Patient Education/Counseling: Diagnosis, Treatment, Prognosis Family Education/Counseling: No Family Present Departure 1 Departure Time of Disposition: 12:18 Impression: Primary Impression: Elevated troponin Additional Impression: Non-STEMI (non-ST elevated myocardial infarction) Disposition: ADMITTED INPATIENT Admit to: [facility] Condition: Fair Critical Care Note Critical Care Time?: Yes (35 min-critical care time only) Stability Stability form required: No Unstable for transfer: Telemetry monitoring (Telemetry monitoring required), ED Physician Assesment (Clinical assesment) Heart Score Heart Score: Heart Score Response (Comments) Value History Highly Suspicious 2 EKG Normal 0 Age 45-64 1 Risk Factors >3 or Hx ASHD 2 Troponin 1-2 x's Normal limit 1 Total 6 I personally scribed for LAUREL GARIBAY MD ([email or web address]) on 05/29/24 at 10:35. Electronically submitted by Marino Mistry ([email or web address]). I personally scribed for LAUREL GARIBAY MD ([email or web address]) on 05/29/24 at 11:02. Electronically submitted by Marino Mistry ([email or web address]). LAUREL GARIBAY MD May 29, 2024 10:35
--- NOTE | 2024-05-29 10:42 | ECG ---
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
[2024-05-29 10:51] VITALS: PULSE 97; RESP 18; O2SAT 97
[2024-05-29] MEDS: ASPirin 81 mg TAB PO ONE (10:54)
[2024-05-29 10:55] LABS: Basophils # (auto) 0.1 10 ^3/uL (0-0.2); Basophils % (auto) 0.7 % (0.0-2.0); Eosinophils # (auto) 0.4 10 ^3/uL (0-0.8); Eosinophils % (auto) 4.4 % (0.0-7.0); Hematocrit 42.3 % (41.0-53.0); Hemoglobin 13.9 g/dL (13.5-17.5); Lymphocytes # (auto) 1.7 10 ^3/uL (0.4-5.4); Lymphocytes % (auto) 18.6 % (10.0-50.0); Mean Corpuscular Hemoglobin 28.3 pg (28.0-32.0); Mean Corpuscular Hgb Conc. 32.8 g/dL (32.0-36.0); Mean Corpuscular Volume 86.2 fL (80.0-100.0); Monocytes # (auto) 0.6 10 ^3/uL (0-1.3); Monocytes % (auto) 6.6 % (0.0-12.0); Neutrophils # (auto) 6.2 10 ^3/uL (1.6-8.6); Neutrophils % (auto) 69.7 % (37.0-80.0); Platelet Count (auto) 252 10^3/uL (140-450); Red Cell Distribution Width 15.3 % (11.8-14.3); White Blood Cell 8.9 10^3/uL (4.4-10.8)
--- NOTE | 2024-05-29 10:55 | DVH ---
CHEST RADIOGRAPH Indication: cp Technique: Single frontal view of the chest was obtained COMPARISON: XY CHEST PORTABLE on DOS: 05/09/24 FINDINGS: Lines and Tubes: None Lungs: Mild increased interstitial prominence. Subtle patchy opacity in the left lower lobe. Pleura: No effusion. No pneumothorax. Cardiomediastinal contours: Unremarkable Bones: Unremarkable IMPRESSION: Possible mild pulmonary vascular congestion or viral pneumonia.Subtle patchy opacity In the left lung base may represent early / developing pneumonia.
[2024-05-29 10:58] LABS: Urine Bacteria None Seen /hpf (None Seen)
[2024-05-29 11:04] LABS: Chloride 106 mmol/L (98-107); Potassium 3.8 mmol/L (3.5-5.1); Sodium 141 mmol/L (136-145)
[2024-05-29 11:05] LABS: Anion Gap 9 (5-15); Carbon Dioxide 26 mmol/L (20-31)
[2024-05-29 11:06] LABS: Calcium 9.3 mg/dL (8.7-10.4)
[2024-05-29 11:11] LABS: BUN/Creatinine Ratio 8.7 (10.0-20.0)
[2024-05-29 11:12] LABS: Blood Urea Nitrogen 9 mg/dL (9-23); Glucose 236 mg/dL (74-106)
[2024-05-29 11:38] LABS: Urine Blood Negative /uL (Negative); Urine Clarity Clear (Clear); Urine Color Light-Yellow (Yellow); Urine Protein, UAD 1+ (Negative); Urine Specific Gravity 1.017 (1.001-1.035); Urine Squamous Epithelial Cell FEW /hpf (<5); Urine Urobilinogen 2 mg/dL (Negative); Urine WBC 1 /HPF (0-3); Urine pH 6.5 (5.0-9.0)
[2024-05-29] MEDS: FUROSEMIDE 40 MG/4 ML VIAL IV ONE (12:11)
[2024-05-29] MEDS ORDERED: NITROGLYCERIN 0.4 MG SL TAB SL PRN (16:45)
[2024-05-29] MEDS ORDERED: HYDROcodone-ACET 5/325MG TAB PO PRN (16:45)
[2024-05-29] MEDS ORDERED: DOCUSATE SOD 100 MG CAP PO PRN (16:45)
[2024-05-29] MEDS ORDERED: MORPHINE SULFATE INJ 2 MG/ml SYRG IV PRN (16:45)
[2024-05-29] MEDS ORDERED: ONDANSETRON HCL 4 MG/2 ML VIAL IV PRN (16:45)
[2024-05-29] MEDS ORDERED: ATOR40TA52 PO (16:50)
[2024-05-29] MEDS ORDERED: BENA5TAB9 PO (16:50)
[2024-05-29] MEDS ORDERED: DAPA1TAB4 PO (16:50)
[2024-05-29] MEDS ORDERED: METF-372 PO (16:50)
[2024-05-29] MEDS ORDERED: FURO40TA4 PO (16:50)
[2024-05-29] MEDS ORDERED: METO25TA93 PO (16:50)
[2024-05-29] MEDS ORDERED: DEXTROSE (50%) 50ML SYRG IV PRN (17:00)
[2024-05-29] MEDS ORDERED: AZITHROMYCIN 500MG/ 250ML 250 ML IV ONE (17:00)
[2024-05-29] MEDS: ACCU-CHEK COMFORT CURVE STRIP VI SCH (17:00)
--- NOTE | 2024-05-29 17:29 | DVHHP2 ---
History of Present Illness Reason for Visit: Chest pain History of Present Illness Tulio Null is a 49-year-old male with past medical history of CHF, newly diagnosed diabetes, hyperlipidemia, and sleep apnea. Patient was here in the hospital visiting his when he started experiencing shortness of breath, and chest pain, that he describes as feeling heavy. She insisted that he go to the ER to be evaluated. In ER his troponin levels were elevated. Cardiology was consulted, and the plan is to take him to slab stri[facility] tomorrow morning. Patient has been admitted at [facility], and here in the last month due to shortness of breath and CHF exacerbations. When patient was here in April A1c was 10.5, he was discharged with oral medications, but he needs a glucometer. Patient states he has been told that he has sleep apnea, but he does not have a home CPAP machine, he needs to have an outpatient sleep study. On assessment, patient was first asleep, I witnessed his sleep apnea, his oxygenation would drop into the 70's consistently, and then back up to the 90's. Cardiovascular: CHF, hyperipidemia Pulmonary: Other (sleep apnea) Endocrine: Diabetes Past Surgical History: Hernia Repair Family History: None Smoke: No ALCOHOL: none Drugs: None Lives: with Family Domestic Violence: Neg Review of Systems Constitutional: No: Fever, Chills, Sweats, Weakness, Malaise, Other Eyes: No: Pain, Vision change, Conjunctivae inflammation, Eyelid inflammation, Other, Redness ENT: No: Ear pain, Ear discharge, Nose pain, Nose discharge, Nose congestion, Mouth pain, Mouth swelling, Throat pain, Throat swelling, Other Respiratory: Shortness of breath; No: Cough, Dry, SOB with excertion, Wheezing, Hemoptysis, Pleuritic Pain, Sputum, Wheezing, Other Cardiovascular: Chest Pain; No: Palpitations, Orthopnea, Paroxysmal Noc. Dyspnea, Edema, Lt Headedness, Other Gastrointestinal: No: Nausea, Vomiting, Abdominal Pain, Diarrhea, Constipation, Melena, Hematochezia, Other Genitourinary: No Dysuria, No Frequency, No Incontinence, No Hematuria, No Retention, No Other Musculoskeletal: No: other, neck pain, shoulder pain, arm pain, back pain, hand pain, leg pain, foot pain Skin: No: Rash, Lesions, Jaundice, Bruising, Other Neurological: No: Weakness, Numbness, Incoordination, Change in speech, Conf usion, Seizures, Other Allergies: Coded Allergies: NO KNOWN ALLERGIES (Unverified , 01/14/13) Medications Current Medications Medications Dose Ordered Sig/Av Route Start Time Stop Time Status Last Admin Dose Admin Sodium Chloride 10 ml Q8HR IV 05/29/24 22:00 UNV Acetaminophen/ Hydrocodone Bitart 1 tab Q4HP PRN PO 05/29/24 16:45 UNV Ondansetron HCl 4 mg Q4HP PRN IV 05/29/24 16:45 UNV Docusate Sodium 100 mg BIDPRN PRN PO 05/29/24 16:45 UNV Acetaminophen 650 mg Q6HP PRN PO 05/29/24 16:45 UNV Nitroglycerin 0.4 mg Q5MINP PRN SL 05/29/24 16:45 UNV Morphine Sulfate 2 mg Q30M PRN IV 05/29/24 16:45 UNV Furosemide 40 mg DAILY PO 05/30/24 10:00 UNV Patient Own Medication 1 tab HS PO 05/29/24 22:00 UNV Patient Own Medication 1 tab DAILY PO 05/30/24 10:00 UNV Patient Own Medication 1 tab DAILY PO 05/30/24 10:00 UNV Patient Own Medication 1 tab BID PO 05/29/24 22:00 UNV Diagnostic Test (Pha) 1 strip ACHS 05/29/24 17:00 UNV Insulin Human Regular HS SC 05/29/24 22:00 UNV Insulin Human Regular AC SC 05/29/24 17:00 UNV Dextrose 50 ml UD PRN IV 05/29/24 17:00 UNV Exam Vital Signs Vital Signs Date Time Temp Pulse Resp B/P (MAP) Pulse Ox O2 Delivery O2 Flow Rate FiO2 05/29/24 16:23 97.4 95 18 130/91 (104) 99 97.4 05/29/24 10:51 Room Air* 0 21 General Appearance: Alert, Oriented X3, moderate distress HEENT: Atraumatic Respiratory: Other (Diminished breath sounds) Cardiovascular: Regular rate, Normal S1, Normal S2, No murmurs Abdominal: Normal bowel sounds, Soft, No tenderness Extremities: No clubbing, No cyanosis Skin: No rashes, No breakdown Neuro: Normal gait, Normal speech, Strength at 5/5 X4 ext Psych/Mental Status: Mental status NL, Mood NL Labs/Xrays Labs Test 05/29/24 13:56 05/29/24 10:35 05/29/24 10:30 Range/Units Troponin I High Sensitivity 119 *H </=54 ng/L White Blood Count 8.9 4.4-10.8 10^3/uL Red Blood Count 4.90 4.5-5.90 10^6/uL Hemoglobin 13.9 13.5-17.5 g/dL Hematocrit 42.3 41.0-53.0 % Mean Corpuscular Volume 86.2 80.0-100.0 fL Mean Corpuscular Hemoglobin 28.3 28.0-32.0 pg Mean Corpuscular Hemoglobin Concent 32.8 32.0-36.0 g/dL Red Cell Distribution Width 15.3 H 11.8-14.3 % Platelet Count 252 140-450 10^3/uL Mean Platelet Volume 9.1 6.9-10.8 fL Neutrophils (%) (Auto) 69.7 37.0-80.0 % Lymphocytes (%) (Auto) 18.6 10.0-50.0 % Monocytes (%) (Auto) 6.6 0.0-12.0 % Eosinophils (%) (Auto) 4.4 0.0-7.0 % Basophils (%) (Auto) 0.7 0.0-2.0 % Neutrophils # (Auto) 6.2 1.6-8.6 10 ^3/uL Lymphocytes # (Auto) 1.7 0.4-5.4 10 ^3/uL Monocytes # (Auto) 0.6 0-1.3 10 ^3/uL Eosinophils # (Auto) 0.4 0-0.8 10 ^3/uL Basophils # (Auto) 0.1 0-0.2 10 ^3/uL Nucleated Red Blood Cells 0.0 % Sodium Level 141 136-145 mmol/L Potassium Level 3.8 3.5-5.1 mmol/L Chloride Level 106 98-107 mmol/L Carbon Dioxide Level 26 20-31 mmol/L Anion Gap 9 5-15 Blood Urea Nitrogen 9 9-23 mg/dL Creatinine 1.04 0.700-1.30 mg/dL Glomerular Filtration Rate Calc 87 >90 mL/min BUN/Creatinine Ratio 8.7 L 10.0-20.0 Serum Glucose 236 H 74-106 mg/dL Calcium Level 9.3 8.7-10.4 mg/dL B-Type Natriuretic Peptide 806.99 0-100 pg/mL Urine Color Light-yellow Yellow Urine Clarity Clear Clear Urine pH 6.5 5.0-9.0 Urine Specific [place] 1.017 1.001-1.035 Urine Protein 1+ H Negative Urine Ketones Negative Negative Urine Blood Negative Negative /uL Urine Nitrite Negative Negative Urine Bilirubin Negative Negative Urine Urobilinogen 2 H Negative mg/dL Urine Leukocyte Esterase Negative Negative /uL Urine RBC <1 0 - 3 /hpf Urine Microscopic WBC 1 0-3 /HPF Urine Squamous Epithelial Cells Few <5 /hpf Urine Bacteria None seen None Seen /hpf Urine Glucose 2+ H Normal mg/dL CHEST RADIOGRAPH FINDINGS: Lines and Tubes: None Lungs: Mild increased interstitial prominence. Subtle patchy opacity in the left lower lobe. Pleura: No effusion. No pneumothorax. Cardiomediastinal contours: Unremarkable Bones: Unremarkable IMPRESSION: Possible mild pulmonary vascular congestion or viral pneumonia.Subtle patchy opacity In the left lung base may represent early / developing pneumonia. Assessment/Plan Assessment/Plan Assessment: Elevated troponin, Possible NSTEMI, Uncontrolled diabetes, Possible pneumonia, Sleep apnea, CHF, Hyperlipidemia, Plan: Admit to Tele, Cardiology consult, ECHO, IV antibiotics, IV Lasix daily, Supplemental oxygen as needed, Accu checks A QC&HS with sliding scale, Home medications reconciled, Plan discussed with: Patient My Orders Orders - LALITO MARINELLI Procedure Category Date Status Time Admit ADMIT 05/29/24 Transmitted 16:45 Code Status CODE 05/29/24 Transmitted 16:45 Sodium Chloride Lock PHA 05/29/24 Logged (Saline Lock Ns) 22:00 Hydrocodone-Acet PHA 05/29/24 Logged 5/325mg Tab ([place] 16:45 Ondansetron Hcl PHA 05/29/24 Logged (Zofran) 16:45 Docusate Sodium PHA 05/29/24 Logged Capsule (Colace 16:45 Complete Blood Count LAB 05/30/24 Verified 04:00 Comprehensive LAB 05/30/24 Verified Metabolic Panel 04:00 Condition: Serious THEO 05/29/24 In Process 16:45 Acetaminophen Tablet PHA 05/29/24 Logged (Tylenol Tablet) 16:45 Nitroglycerin PHA 05/29/24 Logged Sublingual (Ntrostat 16:45 Morphine Sulfate PHA 05/29/24 Logged Injection 16:45 Stat Ekg For Chest [facility] 05/29/24 In Process Pain 16:45 Notify Of Changes [facility] 05/29/24 In Process From Base 16:45 Snorkelling Instructor For [facility] 05/29/24 In Process 24 Hours 16:45 Emergency Dysrhythmia [facility] 05/29/24 In Process Protocol 16:45 Rhythm Strips Once [facility] 05/29/24 In Process Every Shift 16:45 Oxygen By Nasal RT 05/29/24 Transmitted Cannula 16:45 Furosemide Tablet PHA 05/30/24 Logged (Lasix Tablet) 10:00 (Nf) Atorvastatin PHA 05/29/24 Logged Calcium 22:00 (Nf) Benazepril Hcl PHA 05/30/24 Logged 10:00 (Nf) Dapagliflozin PHA 05/30/24 Logged Propanediol (Farxiga) 10:00 (Nf) Metoprolol PHA 05/29/24 Logged Succinate (Metoprolol 22:00 Glucose Blood PHA 05/29/24 Logged (Accu-Chek Comfort 17:00 Insulin R (Human) PHA 05/29/24 Logged (Insulin R) 22:00 Insulin R (Human) PHA 05/29/24 Logged (Insulin R) 17:00 Dextrose 50% Syringe PHA 05/29/24 Logged 17:00 Echo 2d Mode Cardiac US 05/29/24 Transmitted DOP 16:52 Date of Service: May 29, 2024 Billing Provider: LALITO MARINELLI Common Visit Codes: [id number] INP/OBS CARE (HIGH) LALITO MARINELLI May 29, 2024 17:29
[2024-05-29] MEDS: cefTRIAXone 1GM/50ML D5W 50 ML IV SCH (17:30)
[2024-05-29] MEDS: InsuLIN REG 1unit/0.01ml Soln (100units/ml) SC SCH ×2 (17:37→21:48)
--- NOTE | 2024-05-29 18:54 | DVHINCON2 ---
NAKITA NOBLE [facility] 05/29/24 1854: Date Seen: May 29, 2024 Referring Physician MD Blake Reason for Consultation SOB, NSTEMI History of Present Illness This is a 49-year-old man who presented to the emergency room with a chief complaint of shortness of breath. The patient complains of progressive shortness of breath for the past month associated with HARO, PND, a productive cough, and chest pain described as substernal, nonradiating, pressure-like, and non provoked. Reports a recent admission to [facility] this past week where he was admitted to the ICU for further cardiac work-up. Per patient he AMA as they were not giving him any answers. He also reports another recent admission to [facility] for similar complains where the patient AMA. Per records, the patient was recently admitted to this facility for acute respiratory failure but AMA from the ED on 05/09/2024. Denies undergoing any invasive cardiac workup in the past. States he would like a full cardiac work-up and would like to be compliant moving forward. Multiple 12 lead electrocardiogram revealed a sinus rhythm with a first-degree AV block, PVCs, nonspecific ST segment changes. Troponin levels have remained flat in the 100s ng/L. Significant medical history includes congestive heart failure, lje-ukrkrxa-dgqsszuca diabetes mellitus, hypertension, dyslipidemia, JERSON, and obesity. Past Medical History Past medical history reviewed. No other significant than mentioned above. Past Surgical History Past medical history reviewed. No other significant than mentioned above. Family History: Alcoholism G8 MOTHER, (CIRROSIS OF THE LIVER) G8 FATHER, (COVID COMPLICATIONS) Family History Family history reviewed. Social History Denies the use of illicit drugs, alcohol, or tobacco use. Allergies: Coded Allergies: NO KNOWN ALLERGIES (Unverified , 01/14/13) Home Meds Reported Medications Atorvastatin Calcium (ATORVASTATIN CALCIUM) 40 Mg Tab, 1 TAB PO HS 05/29/24 Benazepril Hcl (Benazepril Hcl) 5 Mg Tab, 1 TAB PO DAILY 05/29/24 Dapagliflozin Propanediol (Farxiga) 10 Mg Tab, 1 TAB PO DAILY 05/29/24 Furosemide (Furosemide) 40 Mg Tab, 1 TAB PO DAILY 05/29/24 Metoprolol Succinate (Metoprolol Succinate Er) 25 Mg Tab, 1 TAB PO BID 05/29/24 Metformin Hydrochloride (Metformin Hcl) 1,000 Mg Tab, 1 TAB PO BID 05/29/24 Albuterol Sulfate (VENTOLIN MDI) 90 Mcg Ih, 90 MCG IN 6XD, INH 05/09/24 Discontinued Reported Medications Benzonatate (Benzonatate) 200 Mg Cap, 1 CAP PO TID, #30 CAP 05/09/24 Azithromycin (ZITHROMAX TABLET) 250 Mg Tb, 250 MG PO ONCE, TAB 05/09/24 Home Meds Home medications reviewed. Current Medications Current Medications Medications (Trade) Dose Ordered Sig/Av Route PRN Reason Start Time Stop Time Status Last Admin Sodium Chloride (Saline Lock Ns) 10 ml Q8HR IV 05/29/24 22:00 Acetaminophen/ Hydrocodone Bitart (Cordova 5/325MG Tab) 1 tab Q4HP PRN PO MODERATE PAIN (4-6 PAIN SCALE) 05/29/24 16:45 Ondansetron HCl (Zofran) 4 mg Q4HP PRN IV NAUSEA / VOMITING 05/29/24 16:45 Docusate Sodium (Colace Capsule) 100 mg BIDPRN PRN PO FOR CONSTIPATION 05/29/24 16:45 Acetaminophen (Tylenol Tablet) 650 mg Q6HP PRN PO PAIN SCALE 1-3 OR TEMP>100.4 05/29/24 16:45 Nitroglycerin (Ntrostat Sublingual) 0.4 mg Q5MINP PRN SL FOR CHEST PAIN 05/29/24 16:45 Morphine Sulfate 2 mg Q30M PRN IV FOR CHEST PAIN 05/29/24 16:45 Furosemide (Lasix Tablet) 40 mg DAILY PO 05/30/24 10:00 UNV Atorvastatin Calcium (Lipitor) 40 mg HS PO 05/29/24 22:00 Benazepril HCl (Lotensin Tablet) 5 mg DAILY PO 05/30/24 10:00 Patient Own Medication 1 tab DAILY PO 05/30/24 10:00 Metoprolol Succinate (Toprol Xl) 25 mg BID PO 05/29/24 22:00 Diagnostic Test (Pha) (Accu-Chek Comfort Curve T) 1 strip ACHS 05/29/24 17:00 05/29/24 17:00 Insulin Human Regular (InsuLIN R) HS SC 05/29/24 22:00 Insulin Human Regular (InsuLIN R) AC SC 05/29/24 17:00 05/29/24 17:37 Dextrose 50 ml UD PRN IV Blood Sugar LESS THAN 60 05/29/24 17:00 Azithromycin 250 ml @ 125 mls/hr DAILY IV 05/30/24 10:00 05/29/24 17:17 DC Furosemide (Lasix Injection) 40 mg DAILY IV 05/30/24 10:00 Doxycycline Hyclate 100 ml @ 50 mls/hr Q12H IV 05/29/24 22:00 Ceftriaxone Sodium 50 ml @ 100 mls/hr DAILY@09 IV 05/29/24 17:30 Review of Systems Constitutional: No symptom reported Ears, Nose, & Throat: No symptom reported Eyes: No symptom reported Neurological: No symptoms reported Pulmonary/Respiratory: SOB Cardiovascular: Chest pain Gastrointestinal: No symptom reported Genitourinary: No symptom reported Musculoskeletal: No symptom reported Skin: No symptom reported Psychiatric: No symptom reported Endocrine: No symptom reported Hemotologic/Lymphatic: No symptom reported Vital Signs Vital Signs Date Time Temp Pulse Resp B/P (MAP) Pulse Ox O2 Delivery O2 Flow Rate FiO2 05/29/24 16:23 97.4 95 18 130/91 (104) 99 97.4 05/29/24 10:51 Room Air* 0 21 Physical Exam General Appearance: Cooperative. Well developed. Obese. Mild acute resp iratory distress Head Exam: Normal inspection Neck Exam: Normal inspection. Non-tender. Normal alignment Pulmonary/Respiratory: Chest non-tender. Crackles to bilateral breath sounds Cardiovascular/Chest: Regular rate and rhythm. S1, S2. Sinus rhythm with first-degree AV block, PVCs, and nonspecific ST segment changes. No murmurs. No JVD. Peripheral Pulses: 2+ Radial (R). 2+ Radial (L). 2+ Pedal (R). 2+ Pedal (L) Abdominal Exam: Normal bowel sounds. Soft. Nontender. No hepatospenomegaly. No masses Ankle Exam: Positive ankle edema Lower extremities: Positive lower extremity edema Neuro/Mental Status: A&O x4. Coherent Thoughts/Psych: Normal thought pattern. Appropriate mood and affect. Anxious Appearance: In no acute distress Skin Exam: Ecchymosis to bilateral upper extremities Labs/Diagnostic Data Labs Test 05/29/24 17:31 05/29/24 13:56 05/29/24 10:35 3/11/25 10:30 Range/Units POC Glucose 201 H 70-106 mg/dl Troponin I High Sensitivity 119 *H </=54 ng/L White Blood Count 8.9 4.4-10.8 10^3/uL Red Blood Count 4.90 4.5-5.90 10^6/uL Hemoglobin 13.9 13.5-17.5 g/dL Hematocrit 42.3 41.0-53.0 % Mean Corpuscular Volume 86.2 80.0-100.0 fL Mean Corpuscular Hemoglobin 28.3 28.0-32.0 pg Mean Corpuscular Hemoglobin Concent 32.8 32.0-36.0 g/dL Red Cell Distribution Width 15.3 H 11.8-14.3 % Platelet Count 252 140-450 10^3/uL Mean Platelet Volume 9.1 6.9-10.8 fL Neutrophils (%) (Auto) 69.7 37.0-80.0 % Lymphocytes (%) (Auto) 18.6 10.0-50.0 % Monocytes (%) (Auto) 6.6 0.0-12.0 % Eosinophils (%) (Auto) 4.4 0.0-7.0 % Basophils (%) (Auto) 0.7 0.0-2.0 % Neutrophils # (Auto) 6.2 1.6-8.6 10 ^3/uL Lymphocytes # (Auto) 1.7 0.4-5.4 10 ^3/uL Monocytes # (Auto) 0.6 0-1.3 10 ^3/uL Eosinophils # (Auto) 0.4 0-0.8 10 ^3/uL Basophils # (Auto) 0.1 0-0.2 10 ^3/uL Nucleated Red Blood Cells 0.0 % Sodium Level 141 136-145 mmol/L Potassium Level 3.8 3.5-5.1 mmol/L Chloride Level 106 98-107 mmol/L Carbon Dioxide Level 26 20-31 mmol/L Anion Gap 9 5-15 Blood Urea Nitrogen 9 9-23 mg/dL Creatinine 1.04 0.700-1.30 mg/dL Glomerular Filtration Rate Calc 87 >90 mL/min BUN/Creatinine Ratio 8.7 L 10.0-20.0 Serum Glucose 236 H 74-106 mg/dL Calcium Level 9.3 8.7-10.4 mg/dL B-Type Natriuretic Peptide 806.99 0-100 pg/mL Urine Color Light-yellow Yellow Urine Clarity Clear Clear Urine pH 6.5 5.0-9.0 Urine Specific Chadwick 1.017 1.001-1.035 Urine Protein 1+ H Negative Urine Ketones Negative Negative Urine Blood Negative Negative /uL Urine Nitrite Negative Negative Urine Bilirubin Negative Negative Urine Urobilinogen 2 H Negative mg/dL Urine Leukocyte Esterase Negative Negative /uL Urine RBC <1 0 - 3 /hpf Urine Microscopic WBC 1 0-3 /HPF Urine Squamous Epithelial Cells Few <5 /hpf Urine Bacteria None seen None Seen /hpf Urine Glucose 2+ H Normal mg/dL Assessment Non ST-elevation myocardial infarction Acute on chronic decompensated HFrEF Chest pain rule out coronary artery disease Hypertension Dyslipidemia Fpe-amfplkf-jutnusolv diabetes mellitus JERSON with CPAP Medical noncompliance Obesity Plan/Recommendation (Dr. Eastman) Case discussed in full detail and patient evaluated at bedside by Dr. Eastman. Scheduled for left cardiac catheterization and coronary angiogram with Dr. Godoy on 05/30/2024. Risks and benefits of the procedure were discussed in full detail and agrees to proceed with intervention. All questions answered. Prior to scheduling for invasive workup the patient was strongly advised for compliance with medical therapy at home which he agrees. We will also obtain a transthoracic echocardiogram to evaluate cardiac function. Initiate therapeutic Lovenox. Initiate single antiplatelet therapy and lipid lowering agent. Initiate GDMT for CHF and uptitrate as tolerated. Continue preload and afterload reduction including strict I&Os and fluid restriction. Monitor ECG changes closely and notify. Thank you for allowing us to participate in this patient's care. Please call if you have any questions or concerns. This medical document was created using an electronic medical record system with voice recognition software and computerized dictation system. Although this document has been carefully reviewed, there might still be some phonetic and typographical errors. Occasional wrong-word or ``sound-alike substitutions may have occurred due to the inherent limitations of voice recognition software. These areas are purely typographical due to imperfections of the software programs and do not reflect any compromise in the patient's medical care. Please read the chart carefully and recognize, using context, where these substitutions have occurred. Plan discussed with: Patient, Other NYHA Physical activity limitations: Class3(Marked) ordinary (activity causes symtoms) Date of Service: May 29, 2024 Billing Provider: NAKITA NOBLE Cardiology Common Codes: 37773-[id number] INP/OBS CARE (High) KENISHA EASTMAN MD 05/31/24 1623: Date Seen: May 29, 2024 Family History: Alcoholism G8 MOTHER, (CIRROSIS OF THE LIVER) G8 FATHER, (COVID COMPLICATIONS) Allergies: Coded Allergies: NO KNOWN ALLERGIES (Unverified , 01/14/13) Home Meds Reported Medications Atorvastatin Calcium (ATORVASTATIN CALCIUM) 40 Mg Tab, 1 TAB PO HS 05/29/24 Benazepril Hcl (Benazepril Hcl) 5 Mg Tab, 1 TAB PO DAILY 05/29/24 Dapagliflozin Propanediol (Farxiga) 10 Mg Tab, 1 TAB PO DAILY 05/29/24 Furosemide (Furosemide) 40 Mg Tab, 1 TAB PO DAILY 05/29/24 Metoprolol Succinate (Metoprolol Succinate Er) 25 Mg Tab, 1 TAB PO BID 05/29/24 Metformin Hydrochloride (Metformin Hcl) 1,000 Mg Tab, 1 TAB PO BID 05/29/24 Albuterol Sulfate (VENTOLIN MDI) 90 Mcg Ih, 90 MCG IN 6XD, INH 05/09/24 Discontinued Reported Medications Benzonatate (Benzonatate) 200 Mg Cap, 1 CAP PO TID, #30 CAP 05/09/24 Azithromycin (ZITHROMAX TABLET) 250 Mg Tb, 250 MG PO ONCE, TAB 05/09/24 Assessment 49-year-old male with long history of leaving hospitals before completing care, seen at bedside. Reports that he was first diagnosed with congestive heart failure, and low ejection fraction approximately 10% in March. He reports he has never had an ischemic up due to his early departure from the hospital.He is willing to undergo angiogram today as well as further evaluation. Patient on exam has cardiac wheezing. Moderately volume overloaded. Will need to start his management with ischemic evaluation. Plan for angiogram tomorrow. NAKITA NOBLE May 29, 2024 18:54 KENISHA EASTMAN MD May 31, 2024 16:23
[2024-05-29 19:46] VITALS: PULSE 94; RESP 21; O2SAT 96
[2024-05-29] MEDS: ATORVASTATIN 20 MG TAB PO SCH (21:17)
[2024-05-29] MEDS: SODIUM CHLOR 0.9% PF (SALINE LOCK) 10ML VIAL/SYR IV SCH (21:18)
[2024-05-29] MEDS: DOXYCYCLINE 100MG/100ML 100 ML IV SCH (21:18)
[2024-05-29] MEDS ORDERED: METOPROLOL SUCCINATE XL 50 MG TAB PO SCH (22:00)
[2024-05-29] MEDS: SACUBITRIL-VALSARTAN 24mg/26mg TAB PO SCH (22:42)
[2024-05-29] MEDS: CARVEDILOL 3.125 MG TAB PO SCH (22:42)
[2024-05-29] MEDS: ENOXAPARIN SOD 120 MG/0.8 ML SYRINGE SC ONE (22:50)
[2024-05-29 23:22] VITALS: BP 120/80; PULSE 93; RESP 18; TEMP 97.7; O2SAT 94
[2024-05-29 23:23] VITALS: PULSE 100; RESP 18; O2SAT 96
[2024-05-30] VITALS (11 sets, daily range): BP systolic 98–133; BP diastolic 66–94; PULSE 89–100; RESP 12–20; TEMP 97.1–98.4; O2SAT 92–100
[2024-05-30 06:22] LABS: Basophils # (auto) 0.1 10 ^3/uL (0-0.2); Basophils % (auto) 0.7 % (0.0-2.0); Eosinophils # (auto) 0.5 10 ^3/uL (0-0.8); Eosinophils % (auto) 5.7 % (0.0-7.0); Hematocrit 40.8 % (41.0-53.0); Hemoglobin 13.7 g/dL (13.5-17.5); Lymphocytes % (auto) 22.5 % (10.0-50.0); Mean Corpuscular Hemoglobin 28.5 pg (28.0-32.0); Mean Corpuscular Hgb Conc. 33.6 g/dL (32.0-36.0); Monocytes # (auto) 0.7 10 ^3/uL (0-1.3); Monocytes % (auto) 7.6 % (0.0-12.0); Neutrophils # (auto) 5.5 10 ^3/uL (1.6-8.6); Neutrophils % (auto) 63.5 % (37.0-80.0); Nucleated Red Blood Cells % 0.2 %; Platelet Count (auto) 301 10^3/uL (140-450); Red Cell Distribution Width 15.3 % (11.8-14.3); White Blood Cell 8.7 10^3/uL (4.4-10.8)
[2024-05-30 06:23] LABS: INR 1.08 (0.9-1.15); Partial Thromboplastin Time 30.5 SEC (24.5-34.5); Prothrombin Time 11.4 sec (9.3-11.8)
[2024-05-30 06:40] LABS: Alanine Aminotransferase 35 U/L (7-40); Albumin 4.2 g/dL (3.2-4.8); Anion Gap 10 (5-15); Aspartate Aminotransferase 31 U/L (13-40); BUN/Creatinine Ratio 11.6 (10.0-20.0); Blood Urea Nitrogen 10 mg/dL (9-23); Calcium 9.5 mg/dL (8.7-10.4); Carbon Dioxide 25 mmol/L (20-31); Chloride 106 mmol/L (98-107); LDL Cholesterol 55 mg/dL (< 100); Magnesium 1.9 mg/dL (1.6-2.6); Sodium 141 mmol/L (136-145); Total Protein 6.8 g/dL (5.7-8.2)
[2024-05-30 06:41] LABS: Alkaline Phosphatase 202 U/L (46-116); Bilirubin, Total 0.6 mg/dL (0.2-1.0); Cholesterol 110 mg/dL (< 200); Glucose 192 mg/dL (74-106); Potassium 3.4 mmol/L (3.5-5.1)
[2024-05-30 06:42] LABS: HDL Cholesterol 25 mg/dL (40-59); Triglycerides 245 mg/dL (< 150)
--- NOTE | 2024-05-30 09:53 | DVHPNRES ---
Progress Note Date Seen: May 30, 2024 Resident Creating Document: SAUD PATEL RESIDENT Medical Necessity Reason Pt with a Central, PICC or Fol: No Subjective Review of Systems Tulio Null is a 49-year-old male with past medical history of CHF, newly diagnosed diabetes, hyperlipidemia, and sleep apnea. Patient was here in the hospital visiting his when he started experiencing shortness of breath, and chest pain, that he describes as feeling heavy. In ER his troponin levels were elevated. Cardiology was consulted, and the plan is to take him to chemical laboratory tester tomorrow morning. Patient has been admitted at [facility], and here in the last month due to shortness of breath and CHF exacerbations. When patient was here in April A1c was 10.5, he was discharged with oral medications, but he needs a glucometer. Patient states he has been told that he has sleep apnea, but he does not have a home CPAP machine, he needs to have an outpatient sleep study. On assessment, patient was first asleep, I witnessed his sleep apnea, his oxygenation would drop into the 70's consistently, and then back up to the 90's. Patient was seen and examined on the bedside. He is alert oriented x3. Complaint of chest pain and patient went for left heart catheterization today. Constitutional: No: Fever, Chills, Sweats, Weakness, Malaise, Other Eyes: No: Pain, Vision change, Conjunctivae inflammation, Eyelid inflammation, Other, Redness ENT: No: Ear pain, Ear discharge, Nose pain, Nose discharge, Nose congestion, Mouth pain, Mouth swelling, Throat pain, Throat swelling, Other Respiratory: Shortness of breath, improving No: Cough, Dry,Wheezing, Hemoptysis, Pleuritic Pain, Sputum, Wheezing, Other Cardiovascular: Chest Pain, No Palpitations, Orthopnea, Paroxysmal Noc. Dyspnea, Edema, Lt Headedness, Other Gastrointestinal: No: Nausea, Vomiting, Abdominal Pain, Diarrhea, Constipation, Melena, Hematochezia, Other Musculoskeletal: No: other, neck pain, shoulder pain, arm pain, back pain, hand pain, leg pain, foot pain Neurological:; No: Weakness, Numbness, Incoordination, Change in speech, Confusion, Seizures Objective vital signs Vital Sign Date Time Temp Pulse Resp B/P (MAP) Pulse Ox O2 Delivery O2 Flow Rate FiO2 05/30/24 01:00 97.7 93 18 120/80 (93) 94 97.7 05/29/24 23:23 Nasal Cannula* 2 28 Total Intake and Output 05/29/24 05/29/24 05/30/24 15:00 23:00 07:00 Intake Total 500 ml Output Total 550 ml Balance -50 ml medications Current Medications Medications Dose Ordered Sig/Av Route Start Time Stop Time Status Last Admin Dose Admin Sodium Chloride 10 ml Q8HR IV 05/29/24 22:00 05/30/24 05:24 10 ML Acetaminophen/ Hydrocodone Bitart 1 tab Q4HP PRN PO 05/29/24 16:45 Ondansetron HCl 4 mg Q4HP PRN IV 05/29/24 16:45 Docusate Sodium 100 mg BIDPRN PRN PO 05/29/24 16:45 Acetaminophen 650 mg Q6HP PRN PO 05/29/24 16:45 Nitroglycerin 0.4 mg Q5MINP PRN SL 05/29/24 16:45 Morphine Sulfate 2 mg Q30M PRN IV 05/29/24 16:45 Furosemide 40 mg DAILY PO 05/30/24 10:00 UNV Atorvastatin Calcium 40 mg HS PO 05/29/24 22:00 05/29/24 21:17 40 MG Diagnostic Test (Pha) 1 strip ACHS 05/29/24 17:00 05/30/24 05:24 1 STRIP Insulin Human Regular HS SC 05/29/24 22:00 05/29/24 21:48 4 UNITS Insulin Human Regular AC SC 05/29/24 17:00 05/29/24 17:37 6 UNITS Dextrose 50 ml UD PRN IV 05/29/24 17:00 Furosemide 40 mg DAILY IV 05/30/24 10:00 Doxycycline Hyclate 100 ml @ 50 mls/hr Q12H IV 05/29/24 22:00 05/29/24 21:18 50 MLS/HR Ceftriaxone Sodium 50 ml @ 100 mls/hr DAILY@09 IV 05/29/24 17:30 Aspirin 81 mg DAILY PO 05/30/24 10:00 Sacubitril/ Valsartan 1 tab BID PO 05/29/24 22:00 05/29/24 22:42 1 TAB Empaglifozin 10 mg DAILY PO 05/30/24 10:00 Spironolactone 12.5 mg DAILY PO 05/30/24 10:00 Carvedilol 3.125 mg Q12HR PO 05/29/24 22:00 05/29/24 22:42 3.125 MG Examination Physical examination: General Appearance: Alert, Oriented X3, Cooperative, No acute distress HEENT: Atraumatic, PERRLA, EOMI, Mucous membrane moist/pink Respiratory: Bilateral crackles. Cardiovascular: Regular rate, Normal S1, Normal S2, No murmurs, no chest wall tenderness Abdominal: Normal bowel sounds, Soft, No tenderness, No hepatospenomegaly, No masses Extremities: Edema+, No clubbing, No cyanosis, Normal pulses, No tenderness/swelling Skin: No rashes, No breakdown, No significant lesion Neuro: Normal gait, Normal speech, Strength at 5/5 X4 ext, Normal tone, Sensation intact, Cranial nerves 3-12 NL, Reflexes 2+ Psych/Mental Status: Mental status NL, Mood NL laboratory and microbiology Laboratory Tests 05/30/24 05:23 Test 05/30/24 05:23 Range/Units Serum Glucose 192 H 74-106 mg/dL Labs and/or images reviewed: Labs reviewed by me, Image(s) reviewed by me Problem List/Assessment/Plan Problem List/Assessment/Plan Asessment and Plan: # Acute chest pain rule out ACS # Possible NSTEMI type I # Possible Gram-positive/ Gram-negative pneumonia # Acute on chronic decompensated systolic heart failure # CAD with ischemic cardiomyopathy - EKG revealed sinus rhythm with first-degree AV block, PVCs, nonspecific ST segment changes - Troponin trends were 122>116>119>113 - cardiology on board - patient underwent left heart catheterization and status post stenting of the RCA - IV Lasix 40 mg daily - IV ceftriaxone 1 g daily and IV doxycycline 100 mg b.i.d. - Continue DAPT aspirin 81 mg daily and Brilinta 90 mg b.i.d. - Continue spironolactone 12.5 mg daily, Jardiance 10 mg daily, carvedilol 3.125 mg b.i.d., Entresto 24/26 mg 1 tab p.o. b.i.d. # Type 2 diabetes mellitus, HbA1C 10.5 ( 05/09/24) - Lantus 15 units at q.a.m. and mild sliding scale of insulin # Possible obstructive sleep apnea - Follow up with PCP for sleep study and subsequent evaluation and management of obstructive sleep apnea. PUD prophylaxis : Pepcid 20 mg PO daily DVT prophylaxis : patient is on dual antiplatelet therapy Code status : Full code Plan discussed with Dr. Penny Plan discussed with: Patient, Other Date of Service: May 30, 2024 Billing Provider: KINDRA SONI MD Common Visit Codes: [id number] INP/OBS CARE(HIGH) SAUD PATEL RESIDENT May 30, 2024 09:53 KINDRA SONI MD Jun 03, 2024 23:42
[2024-05-30] MEDS ORDERED: Dapagliflozin Propanediol (Farxiga) 10 MG TABLET PO SCH (10:00)
[2024-05-30] MEDS ORDERED: FUROSEMIDE 40 MG TAB PO SCH (10:00)
[2024-05-30] MEDS: EMPAGLIFLOZIN 10 MG TAB PO SCH (10:00)
[2024-05-30] MEDS ORDERED: BENAZEPRIL HCL 10 MG TAB PO SCH (10:00)
[2024-05-30] MEDS: SPIRONOLACTONE 25 MG TAB PO SCH (10:00)
[2024-05-30] MEDS ORDERED: AZITHROMYCIN 500MG/ 250ML 250 ML IV SCH (10:00)
[2024-05-30] MEDS: ASPirin 81 mg TAB PO SCH (10:00)
[2024-05-30] MEDS: FUROSEMIDE 40 MG/4 ML VIAL IV SCH (10:07)
[2024-05-30] MEDS: IODIXANOL 320MG/ML 100ML BTL IV ONE (10:49)
[2024-05-30] MEDS: HEPARIN IN NS 1000Units/500mL 1,500 ML ONE (10:49)
[2024-05-30] MEDS: ANGIOMAX 250 MG VIAL IV ONE (12:02)
[2024-05-30] MEDS: VERAPAMIL 2.5MG/ML INJ 2ML VIAL IV ONE (12:02)
[2024-05-30] MEDS: HEPARIN SODIUM (PORCINE) 5000 UNITS/ML 1ML VIAL ONE (12:02)
[2024-05-30] MEDS: fentaNYL CITRATE 100 MCG/2 ML VL ONE (12:02)
[2024-05-30] MEDS: SODIUM CHL 0.9% 50 ML ONE (12:03)
[2024-05-30] MEDS: LIDOCAINE 2%HCL (LOCAL ANESTH.) INJ 20ML MDV ONE (12:03)
[2024-05-30] MEDS: MIDAZOLAM HCL 2MG/2ML 2ml VIAL (1mg/ml) ONE (12:03)
[2024-05-30] MEDS: ATROPINE SULF 1 MG/10ml SYR ONE (12:38)
[2024-05-30] MEDS: TICAGRELOR 90 MG TAB ONE (12:46)
--- NOTE | 2024-05-30 13:59 | DVHOP2 ---
Operative Report - 2 Report Details Date: 05/30/24 Preop Diagnosis: CLINICAL PROFILE: 49-year-old gentleman with a history of chest pain and shortness of breath. Abnormal EKG with abnormal troponins. Cardiac catheterization requested given his history of the current and multiple admissions for chest pain. Postop Diagnosis: CAD/cardiomyopathy. Successful PTCA and stenting of the RCA. Surgeon: Abdirashid Godoy MD Anesthesiologist: Conscious sedation. Anesthesia: Mac, Local (Conscious sedation given in the form of fentanyl and Versed during the procedure. I personally monitored and supervised the patient through entirety of the procedure.) Consent: The patient was informed of the risks and benefits of the procedure. These include but are not limited to complications of anesthesia, postoperative infection, incomplete relief of symptoms, recurrence of symptoms, damage to blood vessels, nerves and tendons, deep venous thrombosis, pulmonary embolism and possible need for repeat surgery in the future. Complications: No complications. Estimated Blood Loss: 5 cc. Findings: RCA stenosis. Cardiomyopathy. Indications for Surgery: Chest pain. Abnormal troponins. Name of Procedure Performed Left heart catheterization, bilateral cine coronary angiography, left ventriculography. PTCA and stenting of the RCA. Procedure Details Procedure Details: Prior local anesthesia with 2% lidocaine to the right wrist and full informed consent obtained patient was prepped and draped in usual fashion followed by placement of a six Croatian sheath into the right radial artery through which a Alberto catheter was used for ventriculography and cannulation both right and left coronary ostia without complications. Hemodynamics: Aortic blood pressure was 110/70. End-diastolic pressure was 16 gradient across the aortic valve on pullback. Coronary anatomy RCA is a large vessel and has a proximal 80% stenosis. The distal segments are free of significant disease. There was AMEE two grade flow. Left main is large and normal. Left anterior descending was a large vessel it is normal in its proximal mid and distal segments. The circumflex is large with two marginals free of significant disease. Ventriculography in the RIVERA projection shows an EF of 20 to 25% with severe global hypokinesis and an enlarged left ventricle. Ad Hoc angioplasty was performed for which a three point five JR4 was placed into the RCA and a Specter wire across the area of stenosis followed by 3 x 12 mm balloon was used to pre dilate we then placed a three by eight mm Medtronic richard drug-eluting stent proximal RCA and dilated to approximately 20 atmospheres. There was excellent antegrade flow without thrombus formation and/or dissection. Impression: Successful PTCA and stenting of the RCA. Elevated ventricular end- diastolic pressure. Significant cardiomyopathy with an EF of proximally 25%. Dilated left ventricle. Recommendations: Dual antiplatelet therapy. Afterload reduction. Lipid lowering therapy. Condition Fair Disposition Still a Patient Date of Service: May 30, 2024 Billing Provider: ABDIRASHID GODOY Sr., MD Cardiology Common Codes: [id number] INP/OBS CARE (High) Cardiology Procedure Codes: 69431 -PTCA W/STENT PLACEMENT, 00379-[id number] HEART CATH W/INTRA INJ, 54485-C/R & L HEART CATH FOR LVG ABDIRASHID GODOY Sr., MD May 30, 2024 13:59
--- NOTE | 2024-05-30 15:18 | ECG ---
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
[2024-05-30] MEDS ORDERED: DEXTROSE (50%) 50ML SYRG IV PRN ×2 (16:45→17:45)
[2024-05-30] MEDS ORDERED: InsuLIN REG 1unit/0.01ml Soln (100units/ml) SC SCH (17:00)
[2024-05-30] MEDS ORDERED: ACCU-CHEK COMFORT CURVE STRIP VI SCH (17:00)
[2024-05-30] MEDS: ACCU-CHEK COMFORT CURVE STRIP VI SCH (21:17)
[2024-05-30] MEDS: TICAGRELOR 90 MG TAB PO SCH (21:17)
[2024-05-30] MEDS: InsuLIN REG 1unit/0.01ml Soln (100units/ml) SC SCH (21:36)
[2024-05-30] MEDS: ACETAMINOPHEN 325 MG TAB PO PRN (22:29)
[2024-05-31 01:07] VITALS: BP 125/76; PULSE 87; RESP 18; TEMP 98.1; O2SAT 94
[2024-05-31 05:00] VITALS: BP 115/73; PULSE 86; RESP 18; TEMP 98; O2SAT 95
[2024-05-31 06:24] LABS: Basophils # (auto) 0.1 10 ^3/uL (0-0.2); Basophils % (auto) 0.8 % (0.0-2.0); Eosinophils # (auto) 0.4 10 ^3/uL (0-0.8); Eosinophils % (auto) 4.7 % (0.0-7.0); Hematocrit 41.7 % (41.0-53.0); Lymphocytes # (auto) 1.6 10 ^3/uL (0.4-5.4); Lymphocytes % (auto) 19.9 % (10.0-50.0); Mean Corpuscular Hemoglobin 28.4 pg (28.0-32.0); Mean Corpuscular Hgb Conc. 33.5 g/dL (32.0-36.0); Mean Corpuscular Volume 84.9 fL (80.0-100.0); Monocytes # (auto) 0.8 10 ^3/uL (0-1.3); Monocytes % (auto) 10.1 % (0.0-12.0); Neutrophils # (auto) 5.1 10 ^3/uL (1.6-8.6); Neutrophils % (auto) 64.5 % (37.0-80.0); Nucleated Red Blood Cells % 0.1 %; Platelet Count (auto) 343 10^3/uL (140-450); Red Blood Cells 4.92 10^6/uL (4.5-5.90); Red Cell Distribution Width 15.3 % (11.8-14.3)
[2024-05-31 06:49] LABS: Alanine Aminotransferase 27 U/L (7-40); Albumin 4.1 g/dL (3.2-4.8); Anion Gap 10 (5-15); Aspartate Aminotransferase 26 U/L (13-40); BUN/Creatinine Ratio 15.7 (10.0-20.0); Bilirubin, Total 0.6 mg/dL (0.2-1.0); Blood Urea Nitrogen 13 mg/dL (9-23); Calcium 9.5 mg/dL (8.7-10.4); Carbon Dioxide 25 mmol/L (20-31); Chloride 105 mmol/L (98-107); Potassium 3.6 mmol/L (3.5-5.1); Sodium 140 mmol/L (136-145); Total Protein 6.6 g/dL (5.7-8.2)
[2024-05-31 06:55] LABS: Alkaline Phosphatase 189 U/L (46-116); Glucose 183 mg/dL (74-106)
[2024-05-31 08:00] VITALS: PULSE 89
[2024-05-31 08:10] VITALS: PULSE 90; RESP 17; O2SAT 97
[2024-05-31 09:00] VITALS: BP 122/83; PULSE 90; RESP 17; TEMP 97.8; O2SAT 97
[2024-05-31] MEDS: INSULIN LANTUS (GLARGINE) 1 /0.01ml (100units/ml) SC SCH (09:34)
[2024-05-31] MEDS ORDERED: INSULIN LANTUS (GLARGINE) 1 /0.01ml (100units/ml) SC SCH (10:00)
[2024-05-31 13:00] VITALS: BP 114/77; PULSE 91; RESP 18; TEMP 97.6; O2SAT 97
--- NOTE | 2024-05-31 13:34 | ECG ---
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
--- NOTE | 2024-05-31 17:38 | DVHDSRES ---
Discharge Summary Date of Admission Resident Creating Document: SAUD PATEL RESIDENT May 29, 2024 at 16:45 Date of Discharge: May 31, 2024 Admitting Diagnosis Acute chest pain and shortness of breath, rule out ACS Wounds: No wound was present. Labs/Diagnostic Data: Laboratory Results Test 05/31/24 11:31 05/31/24 05:40 05/30/24 05:23 05/29/24 10:30 POC Glucose 191 mg/dl (70-106) White Blood Count 8.0 10^3/uL (4.4-10.8) Red Blood Count 4.92 10^6/uL (4.5-5.90) Hemoglobin 14.0 g/dL (13.5-17.5) Hematocrit 41.7 % (41.0-53.0) Mean Corpuscular Volume 84.9 fL (80.0-100.0) Mean Corpuscular Hemoglobin 28.4 pg (28.0-32.0) Mean Corpuscular Hemoglobin Concent 33.5 g/dL (32.0-36.0) Red Cell Distribution Width 15.3 % (11.8-14.3) Platelet Count 343 10^3/uL (140-450) Mean Platelet Volume 8.6 fL (6.9-10.8) Neutrophils (%) (Auto) 64.5 % (37.0-80.0) Lymphocytes (%) (Auto) 19.9 % (10.0-50.0) Monocytes (%) (Auto) 10.1 % (0.0-12.0) Eosinophils (%) (Auto) 4.7 % (0.0-7.0) Basophils (%) (Auto) 0.8 % (0.0-2.0) Neutrophils # (Auto) 5.1 10 ^3/uL (1.6-8.6) Lymphocytes # (Auto) 1.6 10 ^3/uL (0.4-5.4) Monocytes # (Auto) 0.8 10 ^3/uL (0-1.3) Eosinophils # (Auto) 0.4 10 ^3/uL (0-0.8) Basophils # (Auto) 0.1 10 ^3/uL (0-0.2) Nucleated Red Blood Cells 0.1 % Sodium Level 140 mmol/L (136-145) Potassium Level 3.6 mmol/L (3.5-5.1) Chloride Level 105 mmol/L (98-107) Carbon Dioxide Level 25 mmol/L (20-31) Anion Gap 10 (5-15) Blood Urea Nitrogen 13 mg/dL (9-23) Creatinine 0.83 mg/dL (0.700-1.30) Glomerular Filtration Rate Calc 107 mL/min (>90) BUN/Creatinine Ratio 15.7 (10.0-20.0) Serum Glucose 183 mg/dL (74-106) Calcium Level 9.5 mg/dL (8.7-10.4) Total Bilirubin 0.6 mg/dL (0.2-1.0) Aspartate Amino Transferase (AST) 26 U/L (13-40) Alanine Aminotransferase (ALT) 27 U/L (7-40) Alkaline Phosphatase 189 U/L (46-116) Total Protein 6.6 g/dL (5.7-8.2) Albumin 4.1 g/dL (3.2-4.8) Prothrombin Time 11.4 sec (9.3-11.8) Prothrombin Time INR 1.08 (0.9-1.15) Activated Partial Thromboplast Time 30.5 SEC (24.5-34.5) Magnesium Level 1.9 mg/dL (1.6-2.6) Troponin I High Sensitivity 113 ng/L (</=54) B-Type Natriuretic Peptide 750.61 pg/mL (0-100) Triglycerides Level 245 mg/dL (< 150) Cholesterol Level 110 mg/dL (< 200) LDL Cholesterol 55 mg/dL (< 100) HDL Cholesterol 25 mg/dL (40-59) Thyroid Stimulating Hormone (TSH) 3.03 uIU/mL (0.55-4.78) Urine Color Light-yellow (Yellow) Urine Clarity Clear (Clear) Urine pH 6.5 (5.0-9.0) Urine Specific Diagonal 1.017 (1.001-1.035) Urine Protein 1+ (Negative) Urine Ketones Negative (Negative) Urine Blood Negative /uL (Negative) Urine Nitrite Negative (Negative) Urine Bilirubin Negative (Negative) Urine Urobilinogen 2 mg/dL (Negative) Urine Leukocyte Esterase Negative /uL (Negative) Urine RBC <1 /hpf (0 - 3) Urine Microscopic WBC 1 /HPF (0-3) Urine Squamous Epithelial Cells Few /hpf (<5) Urine Bacteria None seen /hpf (None Seen) Urine Glucose 2+ mg/dL (Normal) Other Laboratory Tests 05/31/24 05:40 Brief Hx & Hospital Course: Tulio Null is a 49-year-old male with past medical history of CHF, newly diagnosed diabetes, hyperlipidemia, and sleep apnea. Patient was here in the hospital visiting his when he started experiencing shortness of breath, and chest pain, that he describes as feeling heavy. In ER his troponin levels were elevated. Cardiology was consulted, and the plan is to take him to laboratory chemist tomorrow morning. Patient has been admitted at [facility], [place], and here in the last month due to shortness of breath and CHF exacerbations. When patient was here in April A1c was 10.5, he was discharged with oral medications, but he needs a glucometer. Patient states he has been told that he has sleep apnea, but he does not have a home CPAP machine, he needs to have an outpatient sleep study. On assessment, patient was first asleep, I witnessed his sleep apnea, his oxygenation would drop into the 70's consistently, and then back up to the 90's. Hospital course: EKG revealed sinus rhythm with first-degree AV block, PVCs, nonspecific ST segment changes and troponin trends were 122>116>119>113. Cardiology was on board and patient underwent left heart catheterization and status post stenting of the RCA and advised to continue DAPT aspirin 81 mg daily and Brilinta 90 mg b.i.d. Patient was treated foe acute on chronic HFrEF and possible gram positive/ gram negative pneumonia with IV Lasix 40 mg daily, IV ceftriaxone 1 g daily and IV doxycycline 100 mg b.i.d. and GDMT spironolactone 12.5 mg daily, Jardiance 10 mg daily, carvedilol 3.125 mg b.i.d., Entresto 24/26 mg 1 tab p.o. b.i.d. Recent HbA1C on 05/09/24 was 10.3 and blood sugar was controlled with Lantus 15 units at q.a.m. and mild sliding scale of insulin. Patient left AMA. Consults/Reason for consult Cardiology was consulted Operations or Procedures EXAM: Two-dimensional and M-mode echocardiogram with Doppler and color Doppler. Blood Pressure: 120/80 mmHg INDICATION Elevated Trop. RISK FACTORS Height: 5'9", Weight: 236 DIMENSIONS LVDd 6.0 (3.8-5.7cm) LA (2D) 4.2 (1.9-4.0cm) Aortic Root 3.1 (2.0- 3.7cm) LVDs 5.6 (2.5-4.0cm) LA (MM) (1.9-4.0cm) Aortic Cusp Exc 2.1 (1.5- 2.0cm) EF (%) 12.0 (55-70%) Rt. Atrium 4.7 (1.9-4.0cm) Asc. Aorta cm IVSd 0.7 (0.7-1.1cm) RV (D) 4.3 (1.8-2.4cm) PWd 1.1 (0.7-1.1cm) Mitral Valve Mitral Mitral Stenosis E wave 0.93m/s MV Mean GR. mmHg A wave 0.48m/s MV Peak GR. mmHg E/A ratio 1.9 2D MVA cm2 DECEL Time 149ms PRESS 1/2 Time ms Aortic Valve Aortic Valve Aortic Stenosis V1 0.64m/s AO Mean GR. 4mmHg V2 1.20m/s AO Peak GR. 6mmHg LVOT Diameter 2.4 (1.8-2.4cm) Doppler JERRELL 2.41cm2 Pulmonic Valve V2 0.86m/s Tricuspid Valve TR Velocity 2.10m/s RVSP 18mmHg Other Information Quality : Technically Limited Rhythm : Technically limited study due to body habitus. Conclusion Sinus rhythm. LV enlargement. Left atrial enlargement. Mild aortic root enlargement. Mild mitral annular calcification. Mild aortic sclerosis. Left ventricular function is markedly diminished EF is approximately 15-20%. There is global hypokinesis especially of the inferior lateral wall of the left ventricle. Basal hypokinesis is severe. Right ventricular function is also diminished. There is mild mitral and tricuspid regurgitation. Mild pulmonic insufficiency. No pericardial effusion masses or vegetations. Operative Report - 2 Report Details Date: 05/30/24 Preop Diagnosis: CLINICAL PROFILE: 49-year-old gentleman with a history of chest pain and shortness of breath. Abnormal EKG with abnormal troponins. Cardiac catheterization requested given his history of the current and multiple admissions for chest pain. Postop Diagnosis: CAD/cardiomyopathy. Successful PTCA and stenting of the RCA. Surgeon: Cortez Godoy MD Anesthesiologist: Conscious sedation. Anesthesia: Mac, Local (Conscious sedation given in the form of fentanyl and Versed during the procedure. I personally monitored and supervised the patient through entirety of the procedure.) Consent: The patient was informed of the risks and benefits of the procedure. These include but are not limited to complications of anesthesia, postoperative infection, incomplete relief of symptoms, recurrence of symptoms, damage to blood vessels, nerves and tendons, deep venous thrombosis, pulmonary embolism and possible need for repeat surgery in the future. Complications: No complications. Estimated Blood Loss: 5 cc. Findings: RCA stenosis. Cardiomyopathy. Indications for Surgery: Chest pain. Abnormal troponins. Name of Procedure Performed Left heart catheterization, bilateral cine coronary angiography, left ventriculography. PTCA and stenting of the RCA. Condition at Discharge: Undetermined Final Diagnosis/Problems List # Acute chest pain , s/p PTCAX1 stent in right coronary artery # Possible NSTEMI type I # Possible Gram-positive/ Gram-negative pneumonia # Acute on chronic decompensated systolic heart failure # CAD with ischemic cardiomyopathy # Type 2 diabetes mellitus, HbA1C 10.5 ( 05/09/24) # Possible obstructive sleep apnea Discharge Disposition: AMA Discharge Statement: "Patient was advised to return to the ER or call 911 if any headaches, dizziness, shortness of breath, chest pain, abdominal pain, bleeding, fevers, or worsening of medical condition. Patient was counseled about treatment plan, medications, possible side effects, patientverbalized understanding. All questions were answered to the best of my ability. This discharge took greater then 30 minutes in planning, reviewing documentation, counseling the patient, and discussing with other team members." ASSESSMENT ASSESSMENT Assessment CAD/cardiomyopathy. Successful PTCA and stenting of the RCA. Date of Service: May 31, 2024 Billing Provider: KINDRA SONI MD Common Visit Codes: 74845-YTX/OBS DISCH DAY >30min SAUD PATEL RESIDENT May 31, 2024 17:38 KINDRA SONI MD Jun 04, 2024 00:24
[2024-05-31] MEDS ORDERED: SPIR25TA8 PO (17:45)
[2024-05-31] MEDS ORDERED: SACU1TAB PO (17:45)
[2024-05-31] MEDS ORDERED: TICA90TA PO (17:45)
[2024-05-31] MEDS ORDERED: ASPI81CH59 PO (17:45)
[2024-05-31] MEDS ORDERED: AZIT500T66 PO (17:46)
--- NOTE | 2024-05-31 18:04 | DVHSR ---
APPROVED REPORT EXAM: Two-dimensional and M-mode echocardiogram with Doppler and color Doppler. Blood Pressure: 120/80 mmHg INDICATION Elevated Trop. RISK FACTORS Height: 5'9", Weight: 236 DIMENSIONS LVDd6.0 (3.8-5.7cm)LA (2D)4.2 (1.9-4.0cm)Aortic Root3.1 (2.0-3.7cm) LVDs5.6 (2.5-4.0cm)LA (MM) (1.9-4.0cm)Aortic Cusp Exc2.1 (1.5-2.0cm) EF (%) 12.0 (55-70%)Rt. Atrium4.7 (1.9-4.0cm)Asc. Aorta cm IVSd0.7 (0.7-1.1cm)RV (D)4.3 (1.8-2.4cm) PWd1.1 (0.7-1.1cm) Mitral Valve MitralMitral Stenosis E wave0.93m/sMV Mean GR.mmHg A wave0.48m/sMV Peak GR.mmHg E/A ratio1.92D MVAcm2 DECEL [id number] 1/2 Timems Aortic Valve Aortic ValveAortic Stenosis V10.64m/Jenna Mean GR.4mmHg V21.20m/Jenna Peak GR.6mmHg LVOT Diameter2.4 (1.8-2.4cm)Doppler AVA2.41cm2 Pulmonic Valve V20.86m/s Tricuspid Valve TR Velocity2.10m/s [id number] Other Information Quality : Technically LimitedRhythm : Technically limited study due to body habitus. Conclusion Sinus rhythm. LV enlargement. Left atrial enlargement. Mild aortic root enlargement. Mild mitral annular calcification. Mild aortic sclerosis. Left ventricular function is markedly diminished EF is approximately 15-20%. There is global hypokin esis especially of the inferior lateral wall of the left ventricle. Basal hypokinesis is severe. Ri ght ventricular function is also diminished. There is mild mitral and tricuspid regurgitation. Mild pulmonic insufficiency. No pericardial effusion masses or vegetations.
--- NOTE | 2024-05-31 19:06 | DVHPN2 ---
Consult Progress Note Subjective Other Systems: Actual time of assessment 1500 hours. Patient denies any cardiac symptoms at time of assessment Objective vital signs Vital Sign Date Time Temp Pulse Resp B/P (MAP) Pulse Ox O2 Delivery O2 Flow Rate FiO2 05/31/24 13:00 97.6 91 18 114/77 (89) 97 97.6 05/31/24 08:10 Room Air* 0 21 Total Intake and Output 05/30/24 05/30/24 05/31/24 15:00 23:00 07:00 Intake Total 610 ml 700 ml Output Total 800 ml 1175 ml Balance -800 ml -565 ml 700 ml medications Current Medications Medications Dose Ordered Sig/Av Route Start Time Stop Time Status Last Admin Dose Admin Furosemide 40 mg DAILY PO 05/30/24 10:00 UNV Examination: GENERAL:Normal, LUNGS:Normal, CVS:Normal, NEURO:Normal laboratory and microbiology Laboratory Tests 05/31/24 05:40 Test 05/31/24 05:40 Range/Units Serum Glucose 183 H 74-106 mg/dL Problem List/Assessment/Plan Problem List/Assessment/Plan Chest pain, status post PTCA x 1 SUZANNE to RCA Acute on chronic decompensated HFrEF, NYHA class II Hypertension Dyslipidemia Zla-[id number] diabetes mellitus JERSON with CPAP Medical noncompliance Obesity Plan/Recommendation (Dr. Godoy): The patient underwent a coronary angiogram with left heart catheterization on 05/30/2024 in which there was successful PTCA and stenting of the RCA. Transthoracic echocardiogram reveals an EF of 15-20%. We will recommend to initiate guideline directed medical therapy for CHF, continue dual antiplatelet therapy, and continue lipid-lowering agents. The patient AND his at bedside were educated to follow up with Cardiology in the outpatient setting within 2-4 weeks after discharge. All questions answered. There is no further inpatient cardiac workup indicated at this time. Thank you for allowing us to care for this patient. Please call with any questions or concerns. This medical document was created using an electronic medical record system with voice recognition software and computerized dictation system. Although this document has been carefully reviewed, there might still be some phonetic and typographical errors. Occasional wrong-word or ``sound-alike substitutions may have occurred due to the inherent limitations of voice recognition software. These areas are purely typographical due to imperfections of the software programs and do not reflect any compromise in the patient's medical care. Please read the chart carefully and recognize, using context, where these substitutions have occurred. Plan discussed with: Patient Date of Service: May 31, 2024 Billing Provider: REBECCA ARMENTA Common Visit Codes: [id number] INP/OBS CARE(HIGH) REBECCA ARMENTA May 31, 2024 19:06
--- NOTE | 2024-06-01 15:15 | ECG ---
[facility] Test Date: 2024-05-29 Test Time: 11:33:04 Pat Name: TAYLER COWAN [facility] Gender[facility] M Operations Clerk: EHSAN : 1975 Requested By: LAUREL GARIBAY Order Number: [id number] Reading MD: Cortez Godoy Measurements Intervals [place] Rate: 98 P: 42 OK: 209 QRS: -21 QRSD: 97 T: 59 QT: 373 QTc: 477 Interpretive Statements Sinus tachycardia Ventricular premature complex Prolonged OK interval Borderline left axis deviation Low voltage, precordial leads Borderline prolonged QT interval Electronically Signed On 06-02-2024 18:42:47 PDT by Cortez Godoy Please click the below link to view image of tracing.
== END 2024-05-31 15:45 | disposition left against medical advice (07) | DRG 174 ==
LOC: ER 10:11 → OVERFLOW 16:45 → TELE-WESTW 23:22
PROVIDERS: ADMIT Student in an Organized Health Care Education/Training Program; ATTEND Student in an Organized Health Care Education/Training Program
PROC: 027034Z Dilation of Coronary Artery, One Artery with Drug-eluting Intraluminal Device, Percutaneous Approach (ICD-10-PCS; principal; 2024-05-30)
PROC: 4A023N7 Measurement of Cardiac Sampling and Pressure, Left Heart, Percutaneous Approach (ICD-10-PCS; 2024-05-30)
PROC: B211YZZ Fluoroscopy of Multiple Coronary Arteries using Other Contrast (ICD-10-PCS; 2024-05-30)
PROC: B215YZZ Fluoroscopy of Left Heart using Other Contrast (ICD-10-PCS; 2024-05-30)
DX: I21.4 Non-ST elevation (NSTEMI) myocardial infarction (principal); I50.23 Acute on chronic systolic (congestive) heart failure; J15.69 Pneumonia due to other Gram-negative bacteria; I42.9 Cardiomyopathy, unspecified; J15.9 Unspecified bacterial pneumonia; I11.0 Hypertensive heart disease with heart failure; I25.10 Atherosclerotic heart disease of native coronary artery without angina pectoris; Z53.29 Procedure and treatment not carried out because of patient's decision for other reasons; E78.5 Hyperlipidemia, unspecified; G47.33 Obstructive sleep apnea (adult) (pediatric); I49.3 Ventricular premature depolarization; E66.9 Obesity, unspecified; E11.9 Type 2 diabetes mellitus without complications; I25.5 Ischemic cardiomyopathy; I44.0 Atrioventricular block, first degree; Z87.891 Personal history of nicotine dependence; Z79.84 Long term (current) use of oral hypoglycemic drugs; Z91.199 Patient's noncompliance with other medical treatment and regimen due to unspecified reason; Z68.34 Body mass index [BMI] 34.0-34.9, adult; Z79.899 Other long term (current) drug therapy
CPT/HCPCS: 36415; 71045; 80048; 80053; 80061; 81001; 82962; 83735; 83880; 84443; 84484; 85025; 85610; 85730; 87081; 92941; 93005; 93306; 93458; 99152; 99291; C1887; G0378; J1815; J2250; Q9967